=== PATIENT | female | born 1940 | race Caucasian/White ===

== ENCOUNTER 2017-04-23 13:40 | Inpatient (IN) | payer OTHER ==
[~2017-04-23] VITALS: Ht 162.6 cm; Wt 100.6 kg
[2017-04-23] VITALS (8 sets, daily range): BP systolic 102–128; BP diastolic 68–77; PULSE 66–97; TEMP 36.6–37.1; O2SAT 92–98; Ht 162.6 cm; Wt 100.6 kg
[~2017-04-23 13:40] MED LIST: RAPID SEQUENCE INDUCTION BAG ONE
[2017-04-23] MEDS ORDERED: ONDANSETRON INJ 2 MG/ML 2 ML VIAL IV ONE (13:45)
[2017-04-23] MEDS ORDERED: ONDANSETRON INJ 2 MG/ML 2 ML VIAL ONE (13:50)
[2017-04-23] MEDS ORDERED: NITROGLYCERIN/D5W 100 MCG/ML 500 ML IV STA (13:51)
[2017-04-23] MEDS ORDERED: FUROSEMIDE 40 MG/4 ML VIAL IV STA (13:51)
[2017-04-23] MEDS ORDERED: NITROGLYCERIN/D5W 100 MCG/ML BTL ONE (13:52)
[2017-04-23 14:15] LABS: BASO % 1.3 %; BASO ABS # 0.06 K/uL (0-0.2); COMPLETE YES; EOS % 0.6 %; HEMATOCRIT 48.9 % (37-47); IG% 0.2 %; LYMPH ABS # 1.36 K/uL (1.2-3.4); MEAN CELL VOLUME 102.7 fL (80-100); MEAN CORPUSCULAR HEMOGLOBIN 29.8 pg (25-34); MEAN PLATELET VOLUME 9.7 fL (7.4-10.4); MONO % 9.8 %; NEUT % 59.1 %; PLATELET COUNT 136 K/uL (130-400); RED BLOOD COUNT 4.76 M/uL (4.2-5.4); VEN BLD GAS O2 SATURATION 86.1 %; VEN BLOOD GAS BASE EXCESS 10.3 mEq/L; WHITE BLOOD COUNT 4.69 K/uL (4.8-10.8)
[2017-04-23 14:22] LABS: INR 1.2 (0.9-1.1); PARTIAL THROMBOPLASTIN RATIO 0.9; PROTHROMBIN TIME (PATIENT) 12.7 SECONDS (9.0-12.0)
--- NOTE | 2017-04-23 14:38 | DIAGNOSTIC IMAGING REPORT ---
CHEST ONE VIEW PORTABLE HISTORY: 76 years-old Female EVALUATE RESPIRATORY DISTRESS.DYSPNEA acute respiratory distress COMPARISON: None available TECHNIQUE: Portable semiupright AP view of the chest FINDINGS: The exam is very limited secondary to patient's side bent to the right and rotated to the left with hypoinflation. Bronchovascular crowding is noted with subsegmental bibasilar opacities suggesting atelectasis. There is atherosclerosis of the aorta. Cardiac silhouette is enlarged. There is no pneumothorax or large pleural effusion. Bones of the chest appear grossly intact. Surgical clips project over the right upper abdomen. IMPRESSION: 1. Limited study secondary to positioning and hypoinflation with bronchovascular crowding. 2. Cardiomegaly without overt pulmonary edema. 3. Subsegmental bibasilar opacities suggest atelectasis. The above report was generated using voice recognition software. It may contain grammatical, syntax or spelling errors. Electronically signed by: Vijay Rahman M.D. 04/23/2017 2:37 PM Dictated Date/Time: 04/23/2017 2:34 PM
[2017-04-23 14:40] LABS: ALT/SGPT 25 U/L (12-78); AST/SGOT 37 U/L (15-37); BLOOD UREA NITROGEN 19 mg/dl (7-18); CALCIUM 8.7 mg/dl (8.5-10.1); CARBON DIOXIDE 38 mmol/L (21-32); CHLORIDE 94 mmol/L (98-107); CREATININE 1.19 mg/dl (0.60-1.20); GLUCOSE 150 mg/dl (70-99); POTASSIUM 4.1 mmol/L (3.5-5.1); SODIUM 137 mmol/L (136-145)
[2017-04-23 14:43] LABS: URINE APPEARANCE CLEAR (CLEAR); URINE BILIRUBIN NEG (NEG); URINE COLOR YELLOW; URINE EPITHELIAL CELL AUTO >30 /lpf (0-5); URINE NITRITE NEG (NEG); URINE SPECIFIC GRAVITY 1.017 (1.000-1.030); UROBILINOGEN NEG (NEG)
[2017-04-23 14:45] LABS: ALB/GLOB RATIO 0.7 (0.9-2); ALKALINE PHOSPHATASE 107 U/L (45-117)
[2017-04-23 14:46] LABS: MANUAL MICROSCOPIC REQUIRED? NO; REVIEW REQ? YES
--- NOTE | 2017-04-23 15:15 | EMERGENCY ROOM VISIT NOTE ---
History Report prepared by Aletheaibgulshan: Jimenez Mora Under the Supervision of: Dr. Guevara Epstein M.D. First contact with patient: 13:30 Stated Complaint: UNRESPONSIVE History of Present Illness The patient is a 76 year old white female with a past medical history of COPD who presents to the ED by EMS with a cc of an improving altered mental status beginning shortly prior to arrival. Per EMS, patient was found unresponsive in the passenger seat of her car parked outside of an [employer] by her friend. Incontinent of urine and breathing "abnormally" at this time. Her blood oxygen saturations were found to be in the low 90's. Patient became response en route, but confused. Her BSG was found to be 175. She appeared to be in A-fib on the monitor. She was reported to appear diaphoretic with a bluish discoloration. The patient denies any pain. She notes that she is on supplemental oxygen at home. Patient's friend notes that the patient was not wearing her supplemental oxygen today at [employer]. Patient is on baby aspirin at home. Source of History: patient, EMS Onset: Shortly prior to arrival Quality: other (altered mental status) Timing: other (improving) Associated Symptoms: + diaphoresis, + SOB, No headache, No chest pain, No abdominal pain, No back pain Note: Positive: bluish discoloration, incontinence of bladder. Review of Systems See HPI for pertinent positives and negatives. A total of ten systems were reviewed and were otherwise negative. Past Medical & Surgical Medical Problems: (1) COPD (chronic obstructive pulmonary disease) (2) Respiratory failure with hypoxia and hypercapnia (3) Respiratory failure with hypoxia and hypercapnia Family History No pertinent family history stated. Social History Occupation Status: retired Current/Historical Medications Scheduled Aspirin (Aspirin EC Low Dose), 81 MG PO DAILY Azelastine Hcl (Astelin Nasal [place]), 2 SPRAYS NA BID Citalopram Hydrobromide (Citalopram Hydrobromide), 10 MG PO DAILY Levothyroxine Sodium (Levothyroxine Sodium), 112 MCG PO DAILY Potassium Ext Rel (Klor-Con), 20 MEQ PO DAILY Scheduled PRN Furosemide (Lasix), 20 MG PO QID PRN for PRN Allergies Coded Allergies: Egg (Unverified Allergy, Unknown, UNKNOWN, 04/23/17) Physical Exam Vital Signs Date Time Temp Pulse Resp B/P (MAP) Pulse Ox O2 Delivery O2 Flow Rate FiO2 04/23/17 16:05 82 18 104/67 92 BiPAP 45 04/23/17 15:45 82 18 95/60 91 BiPAP 45 04/23/17 15:25 86 18 105/66 89 BiPAP 45 04/23/17 15:20 82 18 101/71 92 BiPAP 45 04/23/17 15:15 87 18 105/67 97 BiPAP 45 04/23/17 15:05 93 18 102/69 94 BiPAP 45 04/23/17 15:00 85 18 90/63 94 BiPAP 04/23/17 14:51 86 18 101/70 91 BiPAP 45 04/23/17 14:44 107 18 123/88 95 04/23/17 14:36 72 112/70 91 BiPAP 35 04/23/17 14:35 93 18 94/81 04/23/17 14:23 63 18 144/77 91 BiPAP 04/23/17 14:01 90 BiPAP 5.0 35 04/23/17 13:54 78 94 40 04/23/17 13:49 36.3 107 22 174/113 91 Nasal Cannula 6.0 04/23/17 13:49 Nasal Cannula 04/23/17 13:44 124 Physical Exam GENERAL: Awake, alert, well-appearing, NAD HENT: Normocephalic, atraumatic. EYES: Normal conjunctiva. Sclera non-icteric. PERRL. NECK: Supple. No nuchal rigidity. FROM. RESPIRATORY: Decreased breath sounds. Mild tachypnea. Clear to auscultation. CARDIAC: RRR, no MRG ABDOMEN: Soft, NTND, BS+ MSK: No chest wall TTP. Chronic venous changes in bilateral lower extremity with pitting edema. NEURO: A0x3. GCS 14. Moves lower extremities. 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 SKIN: No rash or jaundice noted. Medical Decision & Procedures ER Provider Diagnostic Interpretation: X-ray: Per my interpretation, radiologist review. CHEST ONE VIEW PORTABLE FINDINGS: The exam is very limited secondary to patient's side bent to the right and rotated to the left with hypoinflation. Bronchovascular crowding is noted with subsegmental bibasilar opacities suggesting atelectasis. There is atherosclerosis of the aorta. Cardiac silhouette is enlarged. There is no pneumothorax or large pleural effusion. Bones of the chest appear grossly intact. Surgical clips project over the right upper abdomen. IMPRESSION: 1. Limited study secondary to positioning and hypoinflation with bronchovascular crowding. 2. Cardiomegaly without overt pulmonary edema. 3. Subsegmental bibasilar opacities suggest atelectasis. The above report was generated using voice recognition software. It may contain grammatical, syntax or spelling errors. Electronically signed by: Vijay Rahman M.D. 04/23/2017 2:37 PM Laboratory Results 04/23/17 13:59 Red Blood Count 4.76, Mean Corpuscular Volume 102.7, Mean Corpuscular Hemoglobin 29.8, Mean Corpuscular Hemoglobin Concent 29.0, Mean Platelet Volume 9.7, Neutrophils (%) (Auto) 59.1, Lymphocytes (%) (Auto) 29.0, Monocytes (%) ( Auto) 9.8, Eosinophils (%) (Auto) 0.6, Basophils (%) (Auto) 1.3, Neutrophils # ( Auto) 2.77, Lymphocytes # (Auto) 1.36, Monocytes # (Auto) 0.46, Eosinophils # ( Auto) 0.03, Basophils # (Auto) 0.06 04/23/17 13:59 Test 04/23/17 13:59 04/23/17 14:05 04/23/17 14:15 04/23/17 14:25 White Blood Count 4.69 K/uL (4.8-10.8) Red Blood Count 4.76 M/uL (4.2-5.4) Hemoglobin 14.2 g/dL (12.0-16.0) Hematocrit 48.9 % (37-47) Mean Corpuscular Volume 102.7 fL (80-100) Mean Corpuscular Hemoglobin 29.8 pg (25-34) Mean Corpuscular Hemoglobin Concent 29.0 g/dl (32-36) Platelet Count 136 K/uL (130-400) Mean Platelet Volume 9.7 fL (7.4-10.4) Neutrophils (%) (Auto) 59.1 % Lymphocytes (%) (Auto) 29.0 % Monocytes (%) (Auto) 9.8 % Eosinophils (%) (Auto) 0.6 % Basophils (%) (Auto) 1.3 % Neutrophils # (Auto) 2.77 K/uL (1.4-6.5) Lymphocytes # (Auto) 1.36 K/uL (1.2-3.4) Monocytes # (Auto) 0.46 K/uL (0.11-0.59) Eosinophils # (Auto) 0.03 K/uL (0-0.5) Basophils # (Auto) 0.06 K/uL (0-0.2) RDW Standard Deviation 58.9 fL (36.4-46.3) RDW Coefficient of Variation 15.7 % (11.5-14.5) Immature Granulocyte % (Auto) 0.2 % Immature Granulocyte # (Auto) 0.01 K/uL (0.00-0.02) Prothrombin Time 12.7 SECONDS (9.0-12.0) Prothromb Time International Ratio 1.2 (0.9-1.1) Activated Partial Thromboplast Time 24.1 SECONDS (21.0-31.0) Partial Thromboplastin Ratio 0.9 Venous Blood pH 7.30 (7.36-7.41) Venous Blood Partial Pressure CO2 85 mmHg (38.0-50.0) Venous Blood Partial Pressure O2 57 mmHg Venous Blood HCO3 41 mmol/L Venous Blood Oxygen Saturation 86.1 % Venous Blood Base Excess 10.3 mEq/L Anion Gap 5.0 mmol/L (3-11) Est Creatinine Clear Calc Drug Dose 47.2 ml/min Estimated GFR () 51.4 Estimated GFR (Non- 44.3 BUN/Creatinine Ratio 16.0 (10-20) Calcium Level 8.7 mg/dl (8.5-10.1) Total Bilirubin 1.0 mg/dl (0.2-1) Aspartate Amino Transf (AST/SGOT) 37 U/L (15-37) Alanine Aminotransferase (ALT/SGPT) 25 U/L (12-78) Alkaline Phosphatase 107 U/L (45-117) Troponin I < 0.015 ng/ml (0-0.045) Pro-B-Type Natriuretic Peptide 1800 pg/ml (0-1800) Total Protein 7.7 gm/dl (6.4-8.2) Albumin 3.3 gm/dl (3.4-5.0) Globulin 4.4 gm/dl (2.5-4.0) Albumin/Globulin Ratio 0.7 (0.9-2) Bedside Lactic Acid Venous 3.37 mmol/L (0.90-1.70) Urine Color YELLOW Urine Appearance CLEAR (CLEAR) Urine pH 5.0 (4.5-7.5) Urine Specific Lillie 1.017 (1.000-1.030) Urine Protein 2+ (NEG) Urine Glucose (UA) NEG (NEG) Urine Ketones NEG (NEG) Urine Occult Blood TRACE (NEG) Urine Nitrite NEG (NEG) Urine Bilirubin NEG (NEG) Urine Urobilinogen NEG (NEG) Urine Leukocyte Esterase TRACE (NEG) Urine WBC (Auto) 1-5 /hpf (0-5) Urine RBC (Auto) 0-4 /hpf (0-4) Urine Hyaline Casts (Auto) 5-10 /lpf (0-5) Urine Epithelial Cells (Auto) >30 /lpf (0-5) Urine Bacteria (Auto) NEG (NEG) Urine Renal Epithelial Cells /lpf (0-5) Urine Crystals AMORPHOUS SEDIMENT (NONE Urine Pathogenic Casts /lpf (0) Lactic Acid Level 3.0 mmol/L (0.4-2.0) Laboratory results reviewed by me Medications Administered Medications (Trade) Dose Ordered Sig/Adair Route Start Time Stop Time Status Last Admin Dose Admin Ondansetron HCl (Zofran Inj) 4 mg STK-MED ONCE .ROUTE 04/23/17 13:50 04/23/17 13:51 DC 04/23/17 13:50 4 MG Nitroglycerin/ Dextrose 500 ml @ 0 mls/hr Q0M STAT IV 04/23/17 13:51 04/23/17 13:54 DC 04/23/17 14:08 30 MLS/HR Furosemide (Lasix Inj) 40 mg NOW STAT IV 04/23/17 13:51 04/23/17 13:54 DC 04/23/17 14:09 40 MG ECG Indication: altered mental status Rate (beats per minute): 116 Rhythm: atrial fibrillation (with RVR) Findings: Q waves (Inferior), other (wide QRS. No other STS changes or TWI. ) ED Course 1339: The patient was evaluated in room A1. A complete history and physical exam was performed. 1352: Bedside ultrasound reveals a very dilated LV with dilated IVC. Scattered B -lines in the bilateral lung field. 1505: Upon reexamination, the patient was resting comfortably. I discussed the test results and treatment plan with her. The patient will be evaluated for further management. Medical Decision The patient is a 76 year old white female with a past medical history of COPD who presents to the ED by EMS with a cc of an improving altered mental status beginning shortly prior to arrival. Differential diagnosis: Etiologies such as metabolic, infection, hypoglycemia, electrolyte abnormalities , cardiac sources, intracerebral event, toxicologic, neurologic, as well as others were entertained. Patient was seen and evaluated the bedside. Patient was and at times to the GCS of 14 was moving all fours did not have any anisocoria. There was a concern that the patient was not breathing well. Patient does have some chronic venous stasis changes and a bedside ultrasound was completed which show a dilated LV plethoric IVC and some B lines the bilateral lung tello. Patient was fairly hypertensive at this time. Patient was placed on BiPAP, given Lasix and started on a nitro drip. Patient did have blood work that was completed along with a chest x-ray. Patient's blood work showed a negative troponin and a BNP of 1800. Patient did have improvement of her symptoms after medications and BiPAP was administered. Gathered some history from the friend at the bedside he states that she is on chronic oxygen but did not have it with and without today patient's VBG did show a pH 73 with some hypercarbia have her a lot of this is chronic as she has a respiratory alkalosis is compensatory for her respiratory acidosis. I did speak with the hospitalist and then did speak with the light technician. The light technician does not believe the patient needs to be in the unit. Patient was admitted. Medication Reconcilliation Current Medication List: was personally reviewed by me Blood Pressure Screening Patient's blood pressure: Elevated blood pressure Blood pressure disposition: Referred to PCP Consults Time Called: 1500 Consulting Physician: Judy Amin Returned Call: 1503 Discussed the patient's case. The patient will be evaluated for further treatment and disposition. Additional Consults: Time Called: 1506 Consulted Physician: Dr. Olguin -ICU Returned Call: [phone] Additional Comments: Discussed the patient's case. Dr. Olguin will evaluate the patient for possible stay in the ICU. Impression Primary Impression: CHF exacerbation Additional Impression: Acute respiratory failure with hypoxia Critical Care I have personally spent greater than 42 minutes of critical care time in the direct management of this patient. This includes bedside care, interpretation of diagnostic studies, and testing, discussion with consultants, patient, and family members, and other required patient management activities. This 42 minutes is in excess of all separately billable procedures. Scribe Attestation The scribe's documentation has been prepared under my direction and personally reviewed by me in its entirety. I confirm that the note above accurately reflects all work, treatment, procedures, and medical decision making performed by me. Departure Information Dispostion Being Evaluated By Hospitalist Problem Qualifiers Primary Impression: CHF exacerbation Congestive heart failure type: systolic Qualified Codes: I50.23 - Acute on chronic systolic (congestive) heart failure
[2017-04-23] MEDS ORDERED: CITA10TA4 PO (15:19)
[2017-04-23] MEDS ORDERED: ASTN (15:19)
[2017-04-23] MEDS ORDERED: LEVO112T4 PO (15:19)
[2017-04-23] MEDS ORDERED: POTA20TA16 PO (15:19)
[2017-04-23] MEDS ORDERED: FURO-85 PO (15:19)
[2017-04-23] MEDS ORDERED: ACETAMINOPHEN 325 MG TAB PO PRN (16:00)
[2017-04-23] MEDS ORDERED: ONDANSETRON INJ 2 MG/ML 2 ML VIAL IV PRN (16:00)
[2017-04-23 16:29] LABS: ARTERIAL BLD GAS O2 SATURATION 97.6 % (90-95); ARTERIAL BLOOD GAS BASE EXCESS 13.5 mEq/L (-9-1.8); ARTERIAL BLOOD GAS HCO3 44 mmol/L (19-24); ARTERIAL BLOOD GAS PO2 113 mm/Hg (80-95); ARTERIAL BLOOD GAS pH 7.31 (7.35-7.45)
[2017-04-23 16:30] LABS: ALLEN TEST POS (POS); O2 ADMINISTRATION 45%
[2017-04-23] MEDS ORDERED: ASPEC81 PO (16:43)
[2017-04-23] MEDS ORDERED: LEVALBUTEROL 1.25MG/3ML NEB INH PRN (17:00)
[2017-04-23] MEDS ORDERED: HEPARIN 25000 UNIT/ D5W 500 ML (PHARMACY PREPARED) IV PRN ×2 (18:30)
--- NOTE | 2017-04-23 19:42 | History and Physical ---
History & Physical Date & Time of Service: Apr 23, 2017 ~ 15:45 Chief Complaint: Unresponsive Primary Care Physician: Dr. Lane History of Present Illness 76 year old female who presents to the ED after an unresponsive episode today. Some history is obtained from patient's friend who is at the bedside. She reports that she picked up the patient this morning to go for breakfast at [facility]. After breakfast and once patient got into the car the friend reports that the patient went unresponsive, was turning blue, and minimally breathing. EMS was called. Upon their arrival, patient was found to have elevated end tidal C02. BiPap was applied. Upon arrival to the ED, patient slowly started to improve. She was initially hypertensive and bedside echo was concerning for CHF so patient was started on nitro drip and given Lasix 40mg IV. EKG shows atrial fibrillation with controlled rate. At the time of my exam, patient is much more alert. She reports she has been feeling well recently. Patient is to wear oxygen 2L however did not wear it when she left the house today. She denies chest pain. No lightheadedness, dizziness, diaphoresis, or syncopal events. She denies abdominal pain, nausea, vomiting, or diarrhea. No fever or chills. She denies urinary symptoms. Patient's legs are noted to be red which she reports is chronic and that they are unchanged from baseline. In the ED, patient is improving with BiPap. EKG shows atrial fibrillation which seems to be new. Lactic acid is 3.0. No obvious signs of infection. Past Medical/Surgical History Medical Problems: (1) COPD (chronic obstructive pulmonary disease) Status: Chronic (2) Depression Status: Chronic (3) Hypothyroidism Status: Chronic (4) Lymphedema Status: Chronic Family History non contributory due to patient's advanced age Social History Smoking Status: Never Smoker Alcohol Use: none Housing status: lives alone Allergies Coded Allergies: Egg (Unverified Allergy, Unknown, UNKNOWN, 04/23/17) Home Medications Scheduled Aspirin (Aspirin EC Low Dose), 81 MG PO DAILY Azelastine Hcl (Astelin Nasal [place]), 2 SPRAYS NA BID Citalopram Hydrobromide (Citalopram Hydrobromide), 10 MG PO DAILY Levothyroxine Sodium (Levothyroxine Sodium), 112 MCG PO DAILY Potassium Ext Rel (Klor-Con), 20 MEQ PO DAILY Scheduled PRN Furosemide (Lasix), 20 MG PO QID PRN for PRN Review of Systems ROS per HPI, all other systems reviewed and negative Physical Exam Vital Signs Date Time Temp Pulse Resp B/P (MAP) Pulse Ox O2 Delivery O2 Flow Rate FiO2 04/23/17 17:33 36.9 97 22 128/77 93 BiPAP 35 04/23/17 17:00 78 98 35 04/23/17 16:05 82 18 104/67 92 BiPAP 45 04/23/17 15:45 82 18 95/60 91 BiPAP 45 04/23/17 15:25 86 18 105/66 89 BiPAP 45 04/23/17 15:20 82 18 101/71 92 BiPAP 45 04/23/17 15:15 87 18 105/67 97 BiPAP 45 04/23/17 15:05 93 18 102/69 94 BiPAP 45 04/23/17 15:00 85 18 90/63 94 BiPAP 04/23/17 14:51 86 18 101/70 91 BiPAP 45 04/23/17 14:44 107 18 123/88 95 04/23/17 14:36 72 112/70 91 BiPAP 35 04/23/17 14:35 93 18 94/81 04/23/17 14:23 63 18 144/77 91 BiPAP 04/23/17 14:01 90 BiPAP 5.0 35 04/23/17 13:54 78 94 40 04/23/17 13:49 36.3 107 22 174/113 91 Nasal Cannula 6.0 04/23/17 13:49 Nasal Cannula 04/23/17 13:44 124 General Appearance: no apparent distress, + obese Head: normocephalic, atraumatic Eyes: normal inspection, PERRL, EOMI, sclerae normal ENT: hearing grossly normal, + pertinent finding (dry mucous membranes) Neck: supple, no JVD, trachea midline Respiratory/Chest: no respiratory distress, + decreased breath sounds, + pertinent finding (resting on BiPap) Cardiovascular: + irregularly irregular (rate controlled), + pertinent finding (+2-3 edema BLLE) Abdomen/GI: normal bowel sounds, non tender, soft, no organomegaly Extremities/Musculoskelatal: normal inspection, no calf tenderness, normal capillary refill Neurologic/Psych: no motor/sensory deficits, alert, normal mood/affect, oriented x 3 Skin: warm/dry, + pertinent finding (BLLE erythematous with dry flaking skin, no open area os drainage noted) Diagnostics Laboratory Results Results Past 24 Hours Test 04/23/17 13:59 04/23/17 14:05 04/23/17 14:15 04/23/17 14:25 Range/Units White Blood Count 4.69 4.8-10.8 K/uL Red Blood Count 4.76 4.2-5.4 M/uL Hemoglobin 14.2 12.0-16.0 g/dL Hematocrit 48.9 37-47 % Mean Corpuscular Volume 102.7 80-100 fL Mean Corpuscular Hemoglobin 29.8 25-34 pg Mean Corpuscular Hemoglobin Concent 29.0 32-36 g/dl Platelet Count 136 130-400 K/uL Mean Platelet Volume 9.7 7.4-10.4 fL Neutrophils (%) (Auto) 59.1 % Lymphocytes (%) (Auto) 29.0 % Monocytes (%) (Auto) 9.8 % Eosinophils (%) (Auto) 0.6 % Basophils (%) (Auto) 1.3 % Neutrophils # (Auto) 2.77 1.4-6.5 K/uL Lymphocytes # (Auto) 1.36 1.2-3.4 K/uL Monocytes # (Auto) 0.46 0.11-0.59 K/uL Eosinophils # (Auto) 0.03 0-0.5 K/uL Basophils # (Auto) 0.06 0-0.2 K/uL RDW Standard Deviation 58.9 36.4-46.3 fL RDW Coefficient of Variation 15.7 11.5-14.5 % Immature Granulocyte % (Auto) 0.2 % Immature Granulocyte # (Auto) 0.01 0.00-0.02 K/uL Prothrombin Time 12.7 9.0-12.0 SECONDS Prothromb Time International Ratio 1.2 0.9-1.1 Activated Partial Thromboplast Time 24.1 21.0-31.0 SECONDS Partial Thromboplastin Ratio 0.9 Venous Blood pH 7.30 7.36-7.41 Venous Blood Partial Pressure CO2 85 38.0-50.0 mmHg Venous Blood Partial Pressure O2 57 mmHg Venous Blood HCO3 41 mmol/L Venous Blood Oxygen Saturation 86.1 % Venous Blood Base Excess 10.3 mEq/L Sodium Level 137 136-145 mmol/L Potassium Level 4.1 3.5-5.1 mmol/L Chloride Level 94 98-107 mmol/L Carbon Dioxide Level 38 21-32 mmol/L Anion Gap 5.0 3-11 mmol/L Blood Urea Nitrogen 19 7-18 mg/dl Creatinine 1.19 0.60-1.20 mg/dl Est Creatinine Clear Calc Drug Dose 47.2 ml/min Estimated GFR () 51.4 Estimated GFR (Non- 44.3 BUN/Creatinine Ratio 16.0 10-20 Random Glucose 150 70-99 mg/dl Calcium Level 8.7 8.5-10.1 mg/dl Total Bilirubin 1.0 0.2-1 mg/dl Aspartate Amino Transf (AST/SGOT) 37 15-37 U/L Alanine Aminotransferase (ALT/SGPT) 25 12-78 U/L Alkaline Phosphatase 107 45-117 U/L Troponin I < 0.015 0-0.045 ng/ml Pro-B-Type Natriuretic Peptide 1800 0-1800 pg/ml Total Protein 7.7 6.4-8.2 gm/dl Albumin 3.3 3.4-5.0 gm/dl Globulin 4.4 2.5-4.0 gm/dl Albumin/Globulin Ratio 0.7 0.9-2 Bedside Lactic Acid Venous 3.37 0.90-1.70 mmol/L Urine Color YELLOW Urine Appearance CLEAR CLEAR Urine pH 5.0 4.5-7.5 Urine Specific Leon 1.017 1.000-1.030 Urine Protein 2+ NEG Urine Glucose (UA) NEG NEG Urine Ketones NEG NEG Urine Occult Blood TRACE NEG Urine Nitrite NEG NEG Urine Bilirubin NEG NEG Urine Urobilinogen NEG NEG Urine Leukocyte Esterase TRACE NEG Urine WBC (Auto) 1-5 0-5 /hpf Urine RBC (Auto) 0-4 0-4 /hpf Urine Hyaline Casts (Auto) 5-10 0-5 /lpf Urine Epithelial Cells (Auto) >30 0-5 /lpf Urine Bacteria (Auto) NEG NEG Urine Renal Epithelial Cells 0-5 /lpf Urine Crystals AMORPHOUS SEDIMENT NONE PRSENT Urine Pathogenic Casts 0 /lpf Lactic Acid Level 3.0 0.4-2.0 mmol/L Test 04/23/17 16:15 Range/Units Arterial Blood pH 7.31 7.35-7.45 Arterial Blood Partial Pressure CO2 88 35-46 mmHg Arterial Blood Partial Pressure O2 113 80-95 mm/Hg Arterial Blood HCO3 44 19-24 mmol/L Arterial Blood Oxygen Saturation 97.6 90-95 % Arterial Blood Base Excess 13.5 -9-1.8 mEq/L Arterial Blood Gas Delivery 45% Abhishek Test POS POS Diagnostic Radiology CXR IMPRESSION: 1. Limited study secondary to positioning and hypoinflation with bronchovascular crowding. 2. Cardiomegaly without overt pulmonary edema. 3. Subsegmental bibasilar opacities suggest atelectasis. Impression Assessment and Plan ACUTE ON CHRONIC HYPOXIC, HYPERCAPNIC RESPIRATORY FAILURE - admit to tele - patient presenting with an episode of unresponsiveness after going out without her oxygen (typically wears 2L all the time); in the ED, patient is improving with BiPap - ABG shows respiratory acidosis - will continue BiPap and recheck ABG - suspect symptoms today are from hypoxia from not wearing oxygen - CXR without infiltrate - also could consider PE - for now, will check BLLE dopplers; currently on heparin drip anyway for new onset atrial fibrillation - per outpatient records, patient does carry a history of COPD however is not on any inhalers; will start PRN nebs and hold on steroids since there is no wheezing at this time; may need pulmonary evaluation - obesity hypoventilation may be contributing as well NEW ONSET ATRIAL FIBRILLATION - patient denies history of and no record of atrial fibrillation on records obtained from PCP - currently rate controlled - will start IV Heparin and low dose metoprolol 12.5mg BID for now - serial cardiac enzymes, resting echo - cardio consult, input appreciated LACTIC ACIDEMIA - likely from hypoxia - no signs of infection or sepsis - will recheck lactic acid HYPOTHYROIDISM - continue levothyroxine DEPRESSION - continue citalopram DVT PROPHYLAXIS - on heparin gtt CODE STATUS - Patient is a DNR as per my discussion with her. DISPO - In my clinical judgment this beneficiary meets acute admission criteria, established by CMS, that includes being hospitalized through two midnights. ADDENDUM: This is a 76 year old female with a PMH of CHF, COPD on chronic O2, hypothyroidism presents after being unresponsive. States she went to [employer] and did not use her oxygen while inside - she is on chronic 2L of O2 at home. When she got back to the car, her friend states she passed out and almost turned blue. Put back on oxygen and EMS brought her to the ED. Was confused initially, but as she was given oxygen (placed on bipap) she felt better. Found to be in A. Fib in the ED - new onset? Plan: continue bipap, recheck ABG in AM, check bilateral LE dopplers lactic acid trending down started on low dose b-yovani and anticoagulation (IV heparin for now) DNR Advanced Directives Existing Living Will: No Existing Power of Commercial Drafter: Yes VTE Prophylaxis VTE Risk Assessment Done? Y/N: Yes Risk Level: Moderate
[2017-04-23] MEDS ORDERED: ALBUT/IPRATROP 3MG/0.5MG NEB 3 ML VIAL INH SCH (20:00)
[2017-04-23 20:38] LABS: ARTERIAL BLD GAS O2 SATURATION 95.9 % (90-95); ARTERIAL BLOOD GAS BASE EXCESS 13.1 mEq/L (-9-1.8); ARTERIAL BLOOD GAS HCO3 44 mmol/L (19-24); ARTERIAL BLOOD GAS PO2 91 mm/Hg (80-95)
[2017-04-23 20:40] LABS: ALLEN TEST POS (POS); O2 ADMINISTRATION 35%
[2017-04-23] MEDS ORDERED: ENOXAPARIN 40 MG/0.4 ML SYR SC SCH (21:00)
[2017-04-23] MEDS: METOPROLOL TARTRATE 25 MG TAB PO SCH (21:51)
[2017-04-24] VITALS (10 sets, daily range): BP systolic 95–113; BP diastolic 58–81; PULSE 20–90; TEMP 36.3–36.9; O2SAT 91–100
[2017-04-24 01:31] LABS: PARTIAL THROMBOPLASTIN RATIO 2.4
[2017-04-24 06:07] LABS: HEMATOCRIT 46.4 % (37-47); MEAN CELL VOLUME 103.3 fL (80-100); MEAN CORPUSCULAR HEMOGLOBIN 29.8 pg (25-34); MEAN CORPUSCULAR HGB CONC 28.9 g/dl (32-36); MEAN PLATELET VOLUME 9.9 fL (7.4-10.4); PLATELET COUNT 129 K/uL (130-400); RED BLOOD COUNT 4.49 M/uL (4.2-5.4); WHITE BLOOD COUNT 4.04 K/uL (4.8-10.8)
[2017-04-24 06:09] LABS: ARTERIAL BLD GAS O2 SATURATION 94.2 % (90-95); ARTERIAL BLOOD GAS BASE EXCESS 13.7 mEq/L (-9-1.8); ARTERIAL BLOOD GAS HCO3 44 mmol/L (19-24); ARTERIAL BLOOD GAS PO2 77 mm/Hg (80-95); ARTERIAL BLOOD GAS pH 7.33 (7.35-7.45)
[2017-04-24] MEDS: LEVOTHYROXINE 112 MCG TAB PO SCH (06:10)
[2017-04-24 06:17] LABS: ALLEN TEST POSITIVE (POS); O2 ADMINISTRATION 35%
[2017-04-24 06:22] LABS: PARTIAL THROMBOPLASTIN RATIO 3.6
--- NOTE | 2017-04-24 06:37 | DIAGNOSTIC IMAGING REPORT ---
VENOUS DOPPLER LWR EXT BILA HISTORY: Pain pain, edema COMPARISON STUDY: None. FINDINGS: There is normal compressibility, flow, and augmentation within the bilateral lower extremity deep venous systems. IMPRESSION: No DVT within the right or left lower extremity. The above report was generated using voice recognition software. It may contain grammatical, syntax or spelling errors. Electronically signed by: Long Alva M.D. 04/24/2017 6:36 AM Dictated Date/Time: 04/24/2017 6:36 AM
[2017-04-24 06:43] LABS: BUN/CREATININE RATIO 21.1 (10-20); CALCIUM 8.6 mg/dl (8.5-10.1); CREATININE 0.93 mg/dl (0.60-1.20); POTASSIUM 4.2 mmol/L (3.5-5.1)
[2017-04-24] MEDS: ASPIRIN 81 MG ECTAB PO SCH (08:56)
[2017-04-24] MEDS: CITALOPRAM 20 MG TAB PO SCH (08:56)
[2017-04-24] MEDS: METOPROLOL TARTRATE 25 MG TAB PO SCH (08:56)
--- NOTE | 2017-04-24 08:56 | ECHOCARDIOGRAM REPORT ---
*NOTICE TO RECEIVING CONSTITUTION PARTY AGENCY This information is strictly Confidential and protected under [place] law. [place] law prohibits you from making any further disclosure of this information unless further disclosure is expressly permitted by the written consent of the person to whom it pertains or is authorized by law. A general authorization for the release of medical or other information is not sufficient for this purpose. Hospital accepts no responsibility if the information is made available to any other person, INCLUDING THE PATIENT. Interpretation Summary * Name: NASEEM FABIAN Study Date: 04/24/2017 07:34 AM BP: 104/67 mmHg * Patient Location: [facility]\S\N284\S\1 HR: 61 * : 1940 (M/d/yyyy) Gender: Female Height: 64 in * Age: 76 yrs Ethnicity: CA Weight: 228 lb * Ordering Physician: Judy Freeman * Referring Physician: Self, Referred * Performed By: Julienne Gamboa RDCS * * Reason For Study: Atrial Fibrillation * BSA: 2.1 m2 * -- Conclusions -- * Normal LV chamber size with mild concentric LVH. * Normal LV systolic function, EF 55-60%. * No segmental left ventricular wall motion abnormalities are noted. * Aortic valve sclerosis moderate, without significant aortic valvular stenosis. * Moderate aortic valve sclerosis without stenosis. Mild aortic regurgitation. * Mild mitral regurgitation. * Severe tricuspid regurgitation. * Moderate left atrial enlargment. * Severe right atrial enlargement. * Pulmonary hypertension is present with a PASP of 43 mmHg assuming a RA pressure of 15 mmHg. Procedure Details * A complete two-dimensional transthoracic echocardiogram was performed (2D, M-mode, Doppler and color flow Doppler). Left Ventricle * The left ventricle is normal in size. * There is mild concentric left ventricular hypertrophy. * Ejection Fraction = 55-60%. * Left ventricular systolic function is normal. * No segmental left ventricular wall motion abnormalities are noted. * The left ventricular wall motion is normal. Right Ventricle * The right ventricular cavity size is normal (basal dimension <4.2 cm in right ventricular apical 4-chamber view). * The right ventricular systolic function is normal as assessed by tricuspid annular plane systolic excursion (TAPSE) (normal >1.5 cm). Atria * The left atrium is moderately dilated. * The right atrium is severely dilated. * No ASD detected; PFO is not assessed. Mitral Valve * The mitral valve anatomy is normal. * There is no mitral valve stenosis. * There is mild mitral regurgitation. Tricuspid Valve * The tricuspid valve anatomy is normal. * There is no tricuspid stenosis. * There is severe tricuspid regurgitation. Aortic Valve * The aortic valve is tricuspid. The leaflet thickness if normal. There is no aortic stenosis, and no significant insufficiency. * Aortic valve sclerosis moderate, without significant aortic valvular stenosis. * No hemodynamically significant valvular aortic stenosis. * Mild aortic regurgitation. Pulmonic Valve * The pulmonary valve is not well seen, but the Doppler examination is normal without significant regurgitation or stenosis. Great Vessels * The aortic root is normal size. Pericardium/Pleural * There is no pericardial effusion. MMode 2D Measurements and Calculations IVSd 1.1 cm IVSs 1.2 cm LVIDd 4.8 cm LVIDs 3.2 cm LVPWd 0.96 cm LVPWs 1.3 cm IVS/LVPW 1.1 FS 32.9 % EDV(Teich) 105.4 ml ESV(Teich) 40.8 ml EF(Teich) 61.3 % EDV(cubed) 107.8 ml ESV(cubed) 32.6 ml EF(cubed) 69.8 % % IVS thick 9.8 % % LVPW thick 32.9 % LV mass(C)d 172.3 grams LV mass(C)dI 83.3 grams/m\S\2 LV mass(C)s 123.8 grams LV mass(C)sI 59.8 grams/m\S\2 SV(Teich) 64.7 ml SI(Teich) 31.3 ml/m\S\2 SV(cubed) 75.3 ml SI(cubed) 36.4 ml/m\S\2 Ao root diam 2.6 cm Ao root area 5.4 cm\S\2 ACS 1.5 cm LA dimension 5.0 cm LA/Ao 1.9 LVAd ap4 20.4 cm\S\2 LVLd ap4 6.7 cm EDV(MOD-sp4) 56.6 ml EDV(sp4-el) 53.0 ml LVAs ap4 10.1 cm\S\2 LVLs ap4 5.5 cm ESV(MOD-sp4) 18.6 ml ESV(sp4-el) 15.9 ml EF(MOD-sp4) 67.1 % EF(sp4-el) 69.9 % LVAd ap2 16.5 cm\S\2 LVLd ap2 6.6 cm EDV(MOD-sp2) 35.2 ml EDV(sp2-el) 34.7 ml LVAs ap2 9.9 cm\S\2 LVLs ap2 5.5 cm ESV(MOD-sp2) 15.4 ml ESV(sp2-el) 15.3 ml EF(MOD-sp2) 56.3 % EF(sp2-el) 56.0 % LVLd %diff -0.35 % EDV(MOD-bp) 44.5 ml LVLs %diff 0.33 % ESV(MOD-bp) 16.2 ml EF(MOD-bp) 63.7 % SV(MOD-sp4) 38.0 ml SI(MOD-sp4) 18.4 ml/m\S\2 SV(MOD-sp2) 19.8 ml SI(MOD-sp2) 9.6 ml/m\S\2 SV(MOD-bp) 28.3 ml SI(MOD-bp) 13.7 ml/m\S\2 SV(sp4-el) 37.0 ml SI(sp4-el) 17.9 ml/m\S\2 SV(sp2-el) 19.5 ml SI(sp2-el) 9.4 ml/m\S\2 Doppler Measurements and Calculations Ao V2 max 147.7 cm/sec Ao max PG 8.7 mmHg Ao max PG (full) 6.2 mmHg AI max mae 343.3 cm/sec AI max PG 47.2 mmHg AI dec slope 220.6 cm/sec\S\2 AI P1/2t 455.8 msec LV V1 max PG 2.5 mmHg LV V1 max 79.1 cm/sec PA V2 max 101.4 cm/sec PA max PG 4.1 mmHg PI max mae 170.4 cm/sec PI max PG 11.6 mmHg PI dec slope 137.3 cm/sec\S\2 PI P1/2t 363.5 msec TR max mae 260.3 cm/sec
[2017-04-24] MEDS ORDERED: LIDOCAINE HCL 1% 20 ML VIAL ONE (11:32)
[2017-04-24] MEDS ORDERED: BUPIVACAINE 0.5 % 5 MG/1 ML MPF 30ML VIAL ONE (11:33)
[2017-04-24] MEDS ORDERED: BACITRACIN 50000 UNIT VIAL ONE (11:33)
--- NOTE | 2017-04-24 11:33 | History & Physical Bridge Note ---
H&P Re-Evaluation Bridge Note: I have examined the patient, reviewed the History & Physical and in the interval since the performance of the History & Physical I have noted the following changes of clinical significance: Pt with TBS and SSS and syncope for dual chamber ppm urgently
--- NOTE | 2017-04-24 11:34 | Procedure Note ---
Pre-Mod Sedation Assessment General Date of Moderate Sedation: Apr 24, 2017. Vital Signs: Vital Signs Past 12 Hours Date Time Temp Pulse Resp B/P (MAP) Pulse Ox O2 Delivery O2 Flow Rate FiO2 04/24/17 10:02 36.6 61 18 100/62 96 BiPAP 5.0 35 04/24/17 08:10 BiPAP 04/24/17 08:05 36.6 61 18 100/62 (75) 96 04/24/17 07:24 66 98 35 04/24/17 04:31 36.3 90 18 113/81 (92) 91 BiPAP 04/24/17 04:00 BiPAP 04/24/17 00:00 BiPAP 04/23/17 23:56 36.6 71 18 102/68 (79) 92 Nasal Cannula 2.0 04/23/17 23:50 66 98 35 Review Cardiovascular: + bradycardia Abdomen: soft Lungs: lungs clear Airway Class: II Pre-Sedation Airway Assessment Oral Cavity: Dentures Short Thick Neck: Yes Hx of Sleep Apnea: No Smoking Status: Never Smoker Mallampati Classification: Class II ASA Classification: Class II Procedure Planning Contraindications-for Mod Sed: None Yes Notes The planned sedation has been discussed with the patient and consent obtained. I have identified the patient, determined the appropriateness of sedation and have assessed the patient immediately prior to the procedure. All medicine(s) and interventions are by my order.
[2017-04-24] MEDS ORDERED: FENTANYL CITRATE INJ 50 MCG/1 ML 2 ML VIAL ONE (11:55)
[2017-04-24] MEDS ORDERED: MIDAZOLAM HCL 5 MG/ML 1 ML VIAL ONE (11:55)
[2017-04-24] MEDS ORDERED: CEFAZOLIN SOD 1 GM VIAL ONE (11:57)
--- NOTE | 2017-04-24 12:00 | CARDIOLOGY CONSULTATION ---
DATE OF CONSULTATION: 04/24/2017 CONSULTATION REQUESTED BY: ROSEMARY Reynoso. REASON FOR CONSULTATION: Syncope and new onset atrial fibrillation. HISTORY OF PRESENT ILLNESS: Mrs. Rojas is a very pleasant 76-year-old woman who is unknown to the [facility]. She presented to [facility] Emergency Department on 04/23/2017 via EMS after a syncopal event. The patient states that she was eating at the local [employer] with her friend and when she went to the restaurant, she did not take her oxygen with her. She got through the meal okay, but then when she left the restaurant and was getting back into the car, she suddenly lost consciousness. Her friend reports that she turned blue and EMS was called. At that time, she was found to be hypoxic. Her blood sugar was okay in the 170s and she was found to be in atrial fibrillation. Upon arrival to the Emergency Department, she was placed on BiPAP and she started to come to. She was also incidentally found to be in AFib, which she states is a new finding for her. However, her rates were not significantly elevated. She was admitted to telemetry unit overnight without issue and remained on BiPAP. Then, at approximately 08:45, she had a significant approximately 5-second pause on telemetry monitoring. She did not convert with this and had subsequent pauses of the same length and remained in atrial fibrillation, now in the 30s. She was asymptomatic at rest with this, but states that she did get lightheaded when she tried to sit up. I called and spoke with the patient's son, Myles, who also volunteered that she did have a fall recently approximately a week ago and is wondering if she did not pass out again at that time. She has been started on heparin for the newly discovered atrial fibrillation and she was ordered metoprolol tartrate; however, she refused the medication. PAST SURGICAL HISTORY: Denies. MEDICAL ILLNESSES: 1. COPD. 2. Chronic respiratory failure, on home O2. 3. Depression. 4. Hypothyroidism. 5. Lymphedema. FAMILY HISTORY: Noncontributory. SOCIAL HISTORY: The patient denies any cigarette use; however, she has been around secondhand smoker in her entire life. Denies any alcohol or recreational drug use. She is recently . She lives by herself. She has 1 son. 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 ALLERGIES: EGG. MEDICATIONS AN OUTPATIENT: 1. Aspirin 81 mg daily. 2. Levothyroxine daily. 3. Potassium chloride daily. 4. Citalopram daily. 5. Azelastine spray b.i.d. REVIEW OF SYSTEMS: As per HPI, all other review of systems reviewed and negative at this time. PHYSICAL EXAMINATION: VITALS: Temperature 36.6, pulse 38, respiratory rate 14, blood pressure 100/62, and saturating 96% on 5 liters of oxygen via BiPAP. GENERAL: Awake, alert, and oriented x3 in no acute distress. HEENT: Normocephalic and atraumatic. Pupils equal, round, and reactive to light and accommodation. Extraocular muscles intact. Anicteric sclerae. Moist mucous membranes. Edentulous. NECK: No JVD and no bruit. CARDIOVASCULAR: Irregularly irregular and slow with a 3/6 mid to late systolic ejection murmur, greatest at the right sternal border, second intercostal space with radiation to the bilateral carotids. No rubs. PULMONARY: Scant rhonchi diffusely, but no rales or wheezing. ABDOMEN: Bowel sounds x4, soft. No rebound, guarding, or tenderness. No organomegaly. EXTREMITIES: +1 bilateral lower extremity pitting edema. No clubbing or cyanosis. +2 pedal pulses bilaterally. SKIN: Warm and dry. TEST RESULTS: Review of telemetry monitoring shows a 5-second pause at 08:46 a.m. and further telemetry monitoring shows atrial fibrillation in 30s. A 2D echocardiogram was read as normal LV chamber size with mild concentric LVH, normal LV systolic function, EF 55%-60%, no segmental left ventricle wall motion abnormalities were noted, moderate aortic valve sclerosis without stenosis, mild aortic regurgitation, mild mitral regurgitation, severe tricuspid regurgitation, moderate left atrial enlargement, severe right atrial enlargement. Pulmonary hypertension is present with a pulmonary systolic pressure of 43 mmHg, assuming right atrial pressure of 50 mmHg. LABORATORY STUDIES OF SIGNIFICANCE: White count of 4, hemoglobin 13.4, and platelet count of 129. Sodium 139, potassium 4.2, BUN 20, and creatinine of 0.9. Blood gas from 04/24/2017 shows 7.33/84/77/44 on 35%. IMPRESSION: 1. Syncope, likely secondary to symptomatic bradycardia. 2. Tachybrady syndrome with newly discovered atrial fibrillation. 3. Chronic hypoxemia. RECOMMENDATIONS: It was my pleasure to see Mrs. Rojas in consultation today. The patient was counseled given the finding that she does appear to have tachybrady syndrome along with symptomatic bradycardia is the likely cause of her syncope. So, given the fact that she is not on any AV becca agents and there is no other organic cause apparent that at this point, I believe she has a primary conduction system disease and that the most prudent course of action would be for a permanent pacemaker placement. I have discussed the pros and cons of this with the patient as well as her son, Myles, and they are both in agreement. So, at this point, her heparin will be discontinued. She has been n.p.o. since admission and she will remain that way and Dr. Purvis will evaluate for the patient for dual chamber permanent pacemaker today given the fact that this is her first episode of atrial fibrillation. Otherwise, all AV becca blocking agents will be held until the pacemaker has been implanted. Thank you very much for allowing me to participate in the care of your patient.
--- NOTE | 2017-04-24 13:25 | Procedure Note ---
Post-Mod Sedation Assessment General Date of Moderate Sedation Apr 24, 2017. Vital Signs: Vital Signs Past 12 Hours Date Time Temp Pulse Resp B/P (MAP) Pulse Ox O2 Delivery O2 Flow Rate FiO2 04/24/17 13:15 60 16 111/70 (84) 99 BiPAP 36 04/24/17 11:50 36.6 40 22 95/58 (70) 98 Room Air 04/24/17 10:02 36.6 61 18 100/62 96 BiPAP 5.0 35 04/24/17 08:10 BiPAP 04/24/17 08:05 36.6 61 18 100/62 (75) 96 04/24/17 07:24 66 98 35 04/24/17 04:31 36.3 90 18 113/81 (92) 91 BiPAP 04/24/17 04:00 BiPAP Review - Discharge Criteria Vital Signs Stable: Yes Alert/Oriented/Conversant: Yes Returned to Baseline Mental St: Yes Nausea Absent/Minimal: Yes Pain/Discomfort/Absent/Minimal: Yes Normal/Baseline Respirations: Yes Active Bleeding?: No Pt Received D/C Instructions: N/A Prescriptions Given: None Specific Proced. D/C Criteria Distal Pulses Present (Cardiac: N/A Groin site assessed-Card Cath: N/A Voided Prior To Discharge: N/A Discharged Patients Adult Escort/Transportation: N/A
[2017-04-24] MEDS ORDERED: ACETAMINOPHEN 325 MG TAB PO PRN (13:30)
[2017-04-24 14:30] LABS: PARTIAL THROMBOPLASTIN RATIO 1.2
--- NOTE | 2017-04-24 15:52 | OPERATIVE REPORT ---
DATE OF OPERATION: 04/24/2017 PREOPERATIVE DIAGNOSIS: Tachybrady syndrome and syncope. POSTOPERATIVE DIAGNOSIS: Same. PROCEDURE: Dual chamber rate responsive permanent pacemaker under fluoroscopic guidance along with peripheral venogram. SURGEON: Dr. Maria D Purvis. MISSION SUPPORT SPECIALIST: None. ANESTHESIA: Monitored conscious sedation administered under my supervision by Christin Cornejo. Total of 2 mg of Versed and 25 mcg of fentanyl, sedation start time was actually 1234. The procedure start time was 1210 and sedation end time was 1315. BLOOD LOSS: Less than 30 mL. COMPLICATIONS: None. CONDITION: Stable. URINE OUTPUT: Not applicable. SPECIMENS: None. FINDINGS: See below. DRAINS: None. IV FLUIDS: 600 mL. INDICATIONS: This 76-year-old female who was admitted to the [facility] after a syncopal episode thought she also had some COPD exacerbation as she was then placed on BIPAP however monitor on telemetry she had evidence of tachybrady syndrome where she was in new onset atrial fibrillation, then went sinus umm in the 30s and was barely and only got 12.5 to 25 of metoprolol and therefore she was recommended an urgent pacemaker. Her other past medical history of COPD on home oxygen, depression, hypothyroidism and lymphedema. CONSENT: Consent was obtained prior to the patient coming into the electrophysiology lab. The patient was informed of risks, benefits, alternatives to the procedure. Risks include but not limited to sudden cardiac , cardiac arrhythmias, cerebrovascular accident, myocardial infarction, injury to the blood vessels, chamber of the heart, bleeding and infection as well as injury to the lung. The patient understood these risks and agreed to the procedure as planned. DESCRIPTION OF THE PROCEDURE: The patient was on BiPAP and she could not really see the consent because she could not wear her glasses. Her niece who is a nurse here at [facility] signed on her behalf. DESCRIPTION OF PROCEDURE: The patient was brought into the electrophysiology lab in a fasting state. She was connected to continuous cardiac specialist. A timeout was performed to ensure patient's identity and procedure correctly. The patient received prophylactic antibiotics prior to incision. She was prepped and draped over the left infraclavicular space in normal surgical standard fashion. Moderate conscious sedation was given throughout the procedure for patient's comfort level. Taswell precautions were maintained throughout the procedure. Of note, before any of the procedure, the patient's blood pressure was on the lower side, so she did receive some IV fluids. A 20 mL of 1% lidocaine, bupivacaine mixture were given in the left deltopectoral groove. Incision was made in left deltopectoral groove. Blunt dissection was performed down to identify the cephalic vein. The cephalic vein was identified but it was on the smaller end so I opted to do a peripheral venogram using 10 mL of IV contrast diluted in 10 mL of saline followed by 20 mL flush to identify the axillary vein. Venous access was obtained through the axillary venous stick and guidewire was inserted without any resistance. The 8 Pakistani sheath was inserted over the guidewire without any resistance. The dilator was removed and a second guidewire was inserted through the 8-Pakistani sheath to allow for retained venous access. The 8-Pakistani sheath was removed, flushed, dilator reinserted over it and then it was reinserted over one of the guidewires without any resistance. The guidewire and dilator were removed and the pacing lead was then advanced initially into the right ventricle; however, I thought that it was not going to be long enough for slack so we positioned it into the right atrial appendage under fluoroscopic guidance using the preformed J-wire. There was adequate pacing and sensing thresholds. The patient did go into Afib during the procedure with placing of the atrial pacing lead but eventually she flipped back into sinus bradycardia and we were able to test and have adequate sensing and thresholds and no diaphragmatic stimulation at high outflow pacing. The 8-Pakistani sheath was peeled away and lead was fixated to the pectoralis muscle using 0 silk suture. A second 8-Pakistani sheath was inserted over the retained guidewire without any resistance. The guidewire and dilator were removed. The right ventricular pacing lead was then advanced into right ventricle and positioned in right infraclavicular apex under fluoroscopic guidance. There was adequate pacing and sensing thresholds and no diaphragmatic stimulation with high output pacing. The 8-Pakistani sheath was peeled away and lead was fixated to the pectoralis muscle using 0 silk suture. Since there was some backbleeding at the venous puncture site, a pursestring using 2-[address] needle was placed around the venous puncture site. An additional 10 mL of 1% lidocaine, bupivacaine mixture were given over the pectoralis fascia and then using blunt dissection within the pectoral fascia over the pectoralis muscle a pacemaker pocket was created. The pocket was flushed with copious amounts of bacitracin saline wash and inspected for hemostasis. Pulse generator was then attached to the leads making sure that the leads were lying flat, making sure that the pins were in appropriate position, passed the set screws and the set screws were tightened. Pulse generator was then placed in the pocket, making sure that the leads were lying flat beneath the device. A stay stitch using 0 silk suture was used to secure the device to the pectoralis muscle. Since the patient was recently on a heparin drip and is going back on Coumadin Lisa stat was placed in the pocket. The incision was then closed in a 3-layer fashion using a 2-0 Vicryl interrupted suture followed by 3-0 Vicryl interrupted suture followed by a 4-0 Monocryl running stitch and Dermabond was applied. EQUIPMENT: 1. Pulse generator was a [employer] Advisa DR MRI SureScan [id number], serial number [id number]. 2. Right atrial lead is a Medtronic 5076-58 cm, serial number [id number]. 3. Right ventricular lead Medtronic 5076-65 cm, serial number [id number]. INTRAOPERATIVE TESTIN. Right atrial lead: P-wave 0.4 millivolts, impedance 551 ohms, threshold 0.5 volts at 0.8 milliamps. 2. Right ventricular lead: R-wave 2.4 millivolts but on paper were 7 millivolts, impedance 957 ohms, threshold 0.4 volts at 0.3 milliamps. FINAL PARAMETERS THROUGH THE DEVICE: 1. Right atrial lead: P-wave 0.1 millivolts but on unipolar it is 0.8 millivolts, impedance 475 ohms, threshold 0.5 volts at 0.4 milliseconds. 2. Right ventricular lead: R-wave 2.4 millivolts, impedance 665 ohms, threshold 0.5 volts at 0.4 milliseconds. FINAL PARAMETERS: MVP-R 60/130. Right atrial amplitude 3.5 volts, pulse width 0.4 milliseconds, sensitivity 0.15 millivolts. Right ventricular amplitude 3.5 volts, pulse width 0.4 milliseconds, sensitivity 1.2 millivolts. IMPRESSION: Successful implantation of a dual chamber rate responsive permanent pacemaker under fluoroscopic guidance secondary to syncope and tachybrady syndrome. PLAN: Monitor patient overnight, 12-lead ECG, chest x-ray. Absolutely no systemic heparin or Lovenox. Start Coumadin and start Toprol 25 mg daily. She is not allowed to lift the left elbow over left shoulder for 1 month. She cannot lift more than 10 pounds with the left arm for 2 weeks. She can shower tomorrow, let water run over the incision, do no scrub it. She should follow up in our [facility] office with device and wound check in 7-10 days. I attest to the content of the Intraoperative Record and any orders documented therein. Any exception s are noted below.
[2017-04-24] MEDS ORDERED: WARFARIN SOD 3 MG TAB PO SCH (16:00)
--- NOTE | 2017-04-24 19:02 | Progress Note ---
Internal Med Progress Note Date of Service: Apr 24, 2017. Provider Documentation: SUBJECTIVE: resting comfortably s/p pace maker today has some pain at procedure site afebrile no nausea denies sob OBJECTIVE: Vital Signs-as noted below Exam: General-alert and oriented. Not in distress ENT-normal hearing Neck-no neck masses Lungs- cta b/l no wheezing present no crackles Heart-s1 and s2 heard regular rate and rhythm no murmurs s/p pacemaker placement -dressing intact Abdomen-soft bowel sounds present no tenderness present no distension Extremities- no erythema Neuro-alert and oriented moves extremities Lab data as noted below. ASSESSMENT & PLAN: ACUTE ON CHRONIC HYPOXIC, HYPERCAPNIC RESPIRATORY FAILURE presented with unresponsive episode ABG shows acidosis initially was placed on bipap chronically on oxygen 2lts [place]? currently stable had pace maker placement today for tachybrady syndrome possible unresponsive episode from bradycardia NEW ONSET ATRIAL FIBRILLATION Tachybrady syndrome s/p pace maker placement today was initially on heparin currently started on Coumadin LACTIC ACIDEMIA likely from hypoxia normal on recheck HYPOTHYROIDISM on levothyroxine DEPRESSION on citalopram DVT PROPHYLAXIS hep sub q CODE STATUS Patient is a DNR as per h and p DISPOSITION monitor in tele pt/ot to be determined Vital Signs: Date Time Temp Pulse Resp B/P (MAP) Pulse Ox O2 Delivery O2 Flow Rate FiO2 04/24/17 16:19 Nasal Cannula 3.0 04/24/17 15:10 36.5 83 18 106/68 (81) 100 BiPAP 80 04/24/17 14:00 36.5 60 20 101/66 (78) BiPAP 35 04/24/17 13:35 36.4 60 18 112/67 (82) 94 BiPAP 35 04/24/17 13:30 60 16 115/67 (83) 99 BiPAP 36 04/24/17 13:15 60 16 111/70 (84) 99 BiPAP 36 04/24/17 12:00 BiPAP 04/24/17 11:50 36.6 40 22 95/58 (70) 98 Room Air 04/24/17 10:02 36.6 61 18 100/62 96 BiPAP 5.0 35 04/24/17 08:10 BiPAP 04/24/17 08:05 36.6 61 18 100/62 (75) 96 04/24/17 07:24 66 98 35 04/24/17 04:31 36.3 90 18 113/81 (92) 91 BiPAP 04/24/17 04:00 BiPAP 04/24/17 00:00 BiPAP 04/23/17 23:56 36.6 71 18 102/68 (79) 92 Nasal Cannula 2.0 04/23/17 23:50 66 98 35 04/23/17 20:06 97 BiPAP 04/23/17 19:56 80 98 35 04/23/17 19:49 37.1 77 18 109/73 (85) 94 BiPAP Lab Results: Results Past 24 Hours Test 04/23/17 20:03 04/23/17 20:04 04/24/17 00:51 04/24/17 05:52 Range/Units Creatine Kinase MB 3.6 4.2 0.5-3.6 ng/ml Creatine Kinase MB Ratio 0-3.0 Troponin I 0.050 0.040 0-0.045 ng/ml Arterial Blood pH 7.30 7.33 7.35-7.45 Arterial Blood Partial Pressure CO2 90 84 35-46 mmHg Arterial Blood Partial Pressure O2 91 77 80-95 mm/Hg Arterial Blood HCO3 44 44 19-24 mmol/L Arterial Blood Oxygen Saturation 95.9 94.2 90-95 % Arterial Blood Base Excess 13.1 13.7 -9-1.8 mEq/L Arterial Blood Gas Delivery 35% 35% Abhishek Test POS POSITIVE POS Lactic Acid Level 0.8 0.4-2.0 mmol/L Activated Partial Thromboplast Time 63.2 93.1 21.0-31.0 SECONDS Partial Thromboplastin Ratio 2.4 3.6 White Blood Count 4.04 4.8-10.8 K/uL Red Blood Count 4.49 4.2-5.4 M/uL Hemoglobin 13.4 12.0-16.0 g/dL Hematocrit 46.4 37-47 % Mean Corpuscular Volume 103.3 80-100 fL Mean Corpuscular Hemoglobin 29.8 25-34 pg Mean Corpuscular Hemoglobin Concent 28.9 32-36 g/dl RDW Standard Deviation 59.2 36.4-46.3 fL RDW Coefficient of Variation 15.7 11.5-14.5 % Platelet Count 129 130-400 K/uL Mean Platelet Volume 9.9 7.4-10.4 fL Sodium Level 139 136-145 mmol/L Potassium Level 4.2 3.5-5.1 mmol/L Chloride Level 95 98-107 mmol/L Carbon Dioxide Level 40 21-32 mmol/L Anion Gap 4.0 3-11 mmol/L Blood Urea Nitrogen 20 7-18 mg/dl Creatinine 0.93 0.60-1.20 mg/dl Est Creatinine Clear Calc Drug Dose 57.9 ml/min Estimated GFR () 69.2 Estimated GFR (Non- 59.7 BUN/Creatinine Ratio 21.1 10-20 Random Glucose 84 70-99 mg/dl Calcium Level 8.6 8.5-10.1 mg/dl Test 04/24/17 14:10 Range/Units Activated Partial Thromboplast Time 30.0 21.0-31.0 SECONDS Partial Thromboplastin Ratio 1.2
[2017-04-24] MEDS ORDERED: METOPROLOL TARTRATE 25 MG TAB PO SCH (21:00)
[2017-04-24] MEDS ORDERED: NURSING VERBAL MED ORDER ONE (22:30)
[2017-04-24] MEDS ORDERED: LORAZEPAM 2 MG/ML 1 ML VIAL IV STA ×2 (22:57→22:58)
[2017-04-25] VITALS (15 sets, daily range): BP systolic 105–132; BP diastolic 70–84; PULSE 48–99; TEMP 36.5–37.5; O2SAT 91–100
[2017-04-25] MEDS: LEVOTHYROXINE 112 MCG TAB PO SCH (06:11)
[2017-04-25 06:13] LABS: HEMATOCRIT 40.7 % (37-47); MEAN CELL VOLUME 103.8 fL (80-100); MEAN CORPUSCULAR HEMOGLOBIN 30.1 pg (25-34); MEAN PLATELET VOLUME 9.5 fL (7.4-10.4); PLATELET COUNT 114 K/uL (130-400); RED BLOOD COUNT 3.92 M/uL (4.2-5.4); WHITE BLOOD COUNT 5.58 K/uL (4.8-10.8)
[2017-04-25 06:36] LABS: PARTIAL THROMBOPLASTIN RATIO 1.1
--- NOTE | 2017-04-25 07:16 | DIAGNOSTIC IMAGING REPORT ---
CHEST 2 VIEWS ROUTINE CLINICAL HISTORY: EXACT TIME ORDERED Evaluate for pneumothorax and lead placement COMPARISON STUDY: 04/23/2017 FINDINGS: Placement of a permanent bipolar cardiac pacemaker. Leads are in good position. No evidence pneumothorax. Mild bibasilar atelectasis. IMPRESSION: Permanent bipolar cardiac pacemaker placement with leads in good position. No evidence for pneumothorax. Mild bibasilar platelike atelectasis. The above report was generated using voice recognition software. It may contain grammatical, syntax or spelling errors. Electronically signed by: Long Alva M.D. 04/25/2017 7:14 AM Dictated Date/Time: 04/25/2017 7:13 AM
[2017-04-25] MEDS ORDERED: METOPROLOL SUCC 25MG EXT REL TAB PO ONE (09:00)
[2017-04-25] MEDS ORDERED: METOPROLOL SUCC 25MG EXT REL TAB PO SCH (09:00)
--- NOTE | 2017-04-25 09:15 | Cardiology Follow-Up ---
Subjective Subjective Date of Service: Apr 25, 2017. Pt evaluation today including: conversation w/ patient, physical exam, chart review, lab review, review of studies, review of inpatient medication list Additional Details: Pt seen and examined, states that she's feeling much better since admission. Breathing has improved, now off bipap. Some soreness at pocket site. Denies cp, palpitations, lightheadedness or dizziness. Tele: intermixed A/V pacing and atrial fibrillation with increased rates. Problem List Social History Problems: (1) Acute respiratory failure with hypoxia Status: Acute (2) CHF exacerbation Status: Acute (3) COPD (chronic obstructive pulmonary disease) Status: Chronic Review of Systems Respiratory: + shortness of breath, + dyspnea on exertion, No see HPI, No cough , No sputum, No wheezing, No dyspnea at rest, No hemoptysis, No problem reported Cardiac: No see HPI, No chest pain, No orthopnea, No PND, No edema, No claudication, No palpitations, No problem reported Objective Vital Signs Last Vital Signs Documentation Date Time Temp Pulse Resp B/P (MAP) Pulse Ox O2 Delivery O2 Flow Rate FiO2 04/25/17 08:45 36.5 99 16 111/73 (86) 98 Nasal Cannula 04/25/17 05:13 40 04/25/17 03:43 5.0 Physical Exam: General Appearance: WD/WN, no apparent distress Eyes: bilateral eyes normal inspection, bilateral eyes PERRL, bilateral eyes EOMI ENT: normal ENT inspection, hearing grossly normal, pharynx normal Neck: supple, no adenopathy, thyroid normal, no JVD, no carotid bruits, trachea midline Respiratory/Chest: + pertinent finding (pocket site erythmatous but appropriate , no hemorrhage) Cardiovascular: no JVD, + tachycardia, + systolic murmur, + irregularly irregular Abdomen: normal bowel sounds, non tender, soft, no organomegaly, no pulsatile mass Extremities: normal inspection, no pedal edema, no calf tenderness Neurologic/Psychiatric: complex care nurse II-XII nml as tested, no motor/sensory deficits, alert, normal mood/affect, oriented x 3 Skin: normal color, warm/dry, no rash Lymphatic: no adenopathy Assessment and Plan 1. syncope likely secondary to significant bradycardia s/p dual chamber permanent pacemaker tolerated well 80% total pacing overnight 2. SSS can now treat tachycardia will uptitrate metoprolol can add cardizem or dig if bp does not tolerate higher BB doses 3. new onset atrial fibrillation increased rates will increase metoprolol succinate to 50mg daily, can further uptitrate or add cardizem or dig for further rate control coumadin started, goal INR 2-3 cont to monitor on tele
[2017-04-25] MEDS: CITALOPRAM 20 MG TAB PO SCH (09:46)
[2017-04-25] MEDS: ASPIRIN 81 MG ECTAB PO SCH (09:47)
[2017-04-25] MEDS: METOPROLOL SUCC 50MG EXT REL TAB PO SCH (09:47)
[2017-04-25 10:31] LABS: BUN/CREATININE RATIO 18.7 (10-20); CALCIUM 8.5 mg/dl (8.5-10.1); CREATININE 1.33 mg/dl (0.60-1.20); POTASSIUM 4.2 mmol/L (3.5-5.1)
[2017-04-25] MEDS ORDERED: POLYETHYLENE (MIRALAX) 17 GM PACK PO PRN (11:15)
[2017-04-25] MEDS ORDERED: OPTIRAY 320 IV PRN (15:00)
[2017-04-25 15:50] LABS: BASO % 0.5 %; BASO ABS # 0.03 K/uL (0-0.2); COMPLETE YES; EOS % 1.4 %; HEMATOCRIT 43.8 % (37-47); IG% 0.2 %; LYMPH % 16.3 %; LYMPH ABS # 0.91 K/uL (1.2-3.4); MEAN CELL VOLUME 104.5 fL (80-100); MEAN CORPUSCULAR HEMOGLOBIN 30.1 pg (25-34); MEAN CORPUSCULAR HGB CONC 28.8 g/dl (32-36); MEAN PLATELET VOLUME 9.6 fL (7.4-10.4); MONO % 16.2 %; NEUT % 65.4 %; PLATELET COUNT 111 K/uL (130-400); RED BLOOD COUNT 4.19 M/uL (4.2-5.4); WHITE BLOOD COUNT 5.57 K/uL (4.8-10.8)
[2017-04-25] MEDS ORDERED: LEVALBUTEROL/IPRATROPIUM NEB INH SCH (16:00)
[2017-04-25] MEDS ORDERED: LEVALBUTEROL/IPRATROPIUM NEB INH PRN (16:00)
[2017-04-25] MEDS ORDERED: WARFARIN SOD 3 MG TAB PO SCH (16:00)
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
[2017-04-25 16:11] LABS: ALB/GLOB RATIO 0.7 (0.9-2); BUN/CREATININE RATIO 20.5 (10-20); CALCIUM 8.3 mg/dl (8.5-10.1); CREATININE 1.26 mg/dl (0.60-1.20); MAGNESIUM 2.5 mg/dl (1.8-2.4); POTASSIUM 4.7 mmol/L (3.5-5.1)
[2017-04-25] MEDS ORDERED: IPRATROPIUM BROMIDE NEB SOLN 0.02% 2.5 ML VIAL INH PRN (16:15)
[2017-04-25] MEDS ORDERED: LEVALBUTEROL 1.25MG/0.5ML NEB INH PRN (16:15)
[2017-04-25 16:44] LABS: ARTERIAL BLD GAS O2 SATURATION 98.5 % (90-95); ARTERIAL BLOOD GAS BASE EXCESS 12.2 mEq/L (-9-1.8); ARTERIAL BLOOD GAS HCO3 42 mmol/L (19-24); ARTERIAL BLOOD GAS PO2 137 mm/Hg (80-95); ARTERIAL BLOOD GAS pH 7.31 (7.35-7.45)
[2017-04-25 16:46] LABS: ALLEN TEST POS (POS); O2 ADMINISTRATION 40%
[2017-04-25] MEDS: WARFARIN SOD 5 MG TAB PO SCH (16:47)
[2017-04-25] MEDS: METHYLPREDNISOLONE IV 40 MG in SYRINGE 0 ML IV SCH ×2 (16:48→20:13)
--- NOTE | 2017-04-25 18:01 | Progress Note ---
Internal Med Progress Note Date of Service: Apr 25, 2017. Provider Documentation: SUBJECTIVE: s/p pace maker yesterday last night got confused and agitated and received Ativan was doing ok in the morning has some pain at procedure site no sob no nausea later in day somewhat lethargic and abg showed co2 retention and started back non bipap OBJECTIVE: Vital Signs-as noted below Exam: General-alert and oriented. Not in distress ENT-normal hearing Neck-no neck masses Lungs- cta b/l no wheezing present no crackles Heart-s1 and s2 heard regular rate and rhythm no murmurs s/p pacemaker placement -site clean Abdomen-soft bowel sounds present no tenderness present no distension Extremities- no erythema b/l lower extremity edema present Neuro-alert and oriented moves extremities Lab data as noted below. ASSESSMENT & PLAN: ACUTE ON CHRONIC HYPOXIC, HYPERCAPNIC RESPIRATORY FAILURE presented with unresponsive episode ABG shows acidosis initially was placed on bipap chronically on oxygen 2lts [place]? copd ex had pace maker placement yesterday for tachybrady syndrome today again somewhat lethargic and abg shows co2 retention started back on bipap, iv steroids and nebs Ct chest no PE but extensive atelectasis avoid Ativan pulmonary consulted. NEW ONSET ATRIAL FIBRILLATION Unresponsive episode mostly from bradycardia Tachybrady syndrome s/p pace maker placement today was initially on heparin currently started on Coumadin ARF mostly from above will f/u labs. LACTIC ACIDEMIA likely from hypoxia normal on recheck HYPOTHYROIDISM on levothyroxine DEPRESSION on citalopram DVT PROPHYLAXIS hep sub q CODE STATUS Patient is a DNR as per h and p DISPOSITION monitor in tele pt/ot to be determined Vital Signs: Date Time Temp Pulse Resp B/P (MAP) Pulse Ox O2 Delivery O2 Flow Rate FiO2 04/25/17 16:15 80 100 40 04/25/17 16:10 BiPAP 2.0 04/25/17 16:05 36.9 85 12 112/74 (87) 97 04/25/17 14:22 81 98 40 04/25/17 14:15 76 16 132/84 (100) 96 BiPAP 2.0 04/25/17 12:00 Nasal Cannula 2.0 04/25/17 11:44 36.6 70 16 105/70 (82) 99 Nasal Cannula 04/25/17 08:45 36.5 99 16 111/73 (86) 98 Nasal Cannula 04/25/17 08:00 Nasal Cannula 2.0 04/25/17 05:13 70 97 40 04/25/17 04:00 BiPAP 40 04/25/17 03:43 37.1 90 16 115/72 (86) 91 CPAP 5.0 40 90 04/25/17 02:44 71 95 40 04/25/17 00:08 37.5 98 18 112/72 (85) 93 CPAP 5.0 40 98 04/25/17 00:00 BiPAP 40 04/24/17 21:47 67 93 40 04/24/17 20:00 BiPAP 04/24/17 19:36 36.9 20 20 101/62 (75) 97 Nasal Cannula 3.0 60 Lab Results: Results Past 24 Hours Test 04/25/17 00:23 04/25/17 05:32 04/25/17 15:36 04/25/17 16:33 Range/Units Bedside Glucose 106 70-90 mg/dl White Blood Count 5.58 5.57 4.8-10.8 K/uL Red Blood Count 3.92 4.19 4.2-5.4 M/uL Hemoglobin 11.8 12.6 12.0-16.0 g/dL Hematocrit 40.7 43.8 37-47 % Mean Corpuscular Volume 103.8 104.5 80-100 fL Mean Corpuscular Hemoglobin 30.1 30.1 25-34 pg Mean Corpuscular Hemoglobin Concent 29.0 28.8 32-36 g/dl RDW Standard Deviation 59.7 59.7 36.4-46.3 fL RDW Coefficient of Variation 15.9 15.6 11.5-14.5 % Platelet Count 114 111 130-400 K/uL Mean Platelet Volume 9.5 9.6 7.4-10.4 fL Activated Partial Thromboplast Time 28.0 21.0-31.0 SECONDS Partial Thromboplastin Ratio 1.1 Sodium Level 141 138 136-145 mmol/L Potassium Level 4.2 4.7 3.5-5.1 mmol/L Chloride Level 96 94 98-107 mmol/L Carbon Dioxide Level 43 42 21-32 mmol/L Anion Gap 3.0 2.0 3-11 mmol/L Blood Urea Nitrogen 25 26 7-18 mg/dl Creatinine 1.33 1.26 0.60-1.20 mg/dl Est Creatinine Clear Calc Drug Dose 41.0 43.2 ml/min Estimated GFR () 44.9 47.9 Estimated GFR (Non- 38.7 41.4 BUN/Creatinine Ratio 18.7 20.5 10-20 Random Glucose 86 98 70-99 mg/dl Calcium Level 8.5 8.3 8.5-10.1 mg/dl Neutrophils (%) (Auto) 65.4 % Lymphocytes (%) (Auto) 16.3 % Monocytes (%) (Auto) 16.2 % Eosinophils (%) (Auto) 1.4 % Basophils (%) (Auto) 0.5 % Neutrophils # (Auto) 3.64 1.4-6.5 K/uL Lymphocytes # (Auto) 0.91 1.2-3.4 K/uL Monocytes # (Auto) 0.90 0.11-0.59 K/uL Eosinophils # (Auto) 0.08 0-0.5 K/uL Basophils # (Auto) 0.03 0-0.2 K/uL Immature Granulocyte % (Auto) 0.2 % Immature Granulocyte # (Auto) 0.01 0.00-0.02 K/uL Magnesium Level 2.5 1.8-2.4 mg/dl Total Bilirubin 0.6 0.2-1 mg/dl Aspartate Amino Transf (AST/SGOT) 27 15-37 U/L Alanine Aminotransferase (ALT/SGPT) 15 12-78 U/L Alkaline Phosphatase 90 45-117 U/L Troponin I 0.071 0-0.045 ng/ml Total Protein 6.3 6.4-8.2 gm/dl Albumin 2.7 3.4-5.0 gm/dl Globulin 3.6 2.5-4.0 gm/dl Albumin/Globulin Ratio 0.7 0.9-2 Arterial Blood pH 7.31 7.35-7.45 Arterial Blood Partial Pressure CO2 86 35-46 mmHg Arterial Blood Partial Pressure O2 137 80-95 mm/Hg Arterial Blood HCO3 42 19-24 mmol/L Arterial Blood Oxygen Saturation 98.5 90-95 % Arterial Blood Base Excess 12.2 -9-1.8 mEq/L Arterial Blood Gas Delivery 40% Abhishek Test POS POS
[2017-04-25] MEDS: IPRATROPIUM BROMIDE NEB SOLN 0.02% 2.5 ML VIAL INH SCH (19:17)
[2017-04-25] MEDS: LEVALBUTEROL 0.63MG/3 ML NEB INH SCH (19:17)
--- NOTE | 2017-04-25 20:45 | DIAGNOSTIC IMAGING REPORT ---
HEAD WITHOUT CONTRAST (CT) CLINICAL HISTORY: 76 years-old Female presenting with lethargy. recent fall and on anticoagulation. TECHNIQUE: Multidetector CT imaging of the head was performed without the use of intravenous contrast. IV contrast: None. A dose lowering technique was used consistent with the principles of ALARA (as low as reasonably achievable). COMPARISON: None. CT DOSE (mGy.cm): The estimated cumulative dose is 614.27 mGy.cm. FINDINGS: Healthcare Analyst topogram: Unremarkable. Ventricles and sulci normal in size. Brain parenchyma normal in appearance with preserved paiz-white differentiation. No mass effect or midline shift. No hemorrhage or acute territorial infarct. No extra-axial fluid collection. Paranasal sinuses and mastoid air cells clear. Calvarium intact. IMPRESSION: 1. No acute intracranial pathology. Electronically signed by: Myles Tucker M.D. 04/25/2017 8:44 PM Dictated Date/Time: 04/25/2017 8:41 PM
[2017-04-25] MEDS ORDERED: LEVALBUTEROL 1.25MG/0.5ML NEB INH SCH (21:00)
[2017-04-25] MEDS ORDERED: IPRATROPIUM BROMIDE NEB SOLN 0.02% 2.5 ML VIAL INH SCH (21:00)
[2017-04-26] VITALS (10 sets, daily range): BP systolic 97–134; BP diastolic 65–81; PULSE 60–98; TEMP 36.3–36.8; O2SAT 94–99
[2017-04-26] MEDS: IPRATROPIUM BROMIDE NEB SOLN 0.02% 2.5 ML VIAL INH SCH ×4 (01:41→21:00)
[2017-04-26] MEDS: LEVALBUTEROL 0.63MG/3 ML NEB INH SCH ×4 (01:42→21:00)
[2017-04-26] MEDS: LEVOTHYROXINE 112 MCG TAB PO SCH (03:43)
[2017-04-26 07:48] LABS: COMPLETE YES; HEMATOCRIT 43.6 % (37-47); IG% 0.2 %; LYMPH % 11.6 %; LYMPH ABS # 0.51 K/uL (1.2-3.4); MEAN CELL VOLUME 102.8 fL (80-100); MEAN CORPUSCULAR HEMOGLOBIN 30.4 pg (25-34); MEAN CORPUSCULAR HGB CONC 29.6 g/dl (32-36); MEAN PLATELET VOLUME 9.8 fL (7.4-10.4); MONO % 3.9 %; NEUT % 84.3 %; PLATELET COUNT 105 K/uL (130-400); RED BLOOD COUNT 4.24 M/uL (4.2-5.4)
[2017-04-26 07:55] LABS: PARTIAL THROMBOPLASTIN RATIO 1.1
[2017-04-26 08:11] LABS: BUN/CREATININE RATIO 23.6 (10-20); CALCIUM 8.6 mg/dl (8.5-10.1); CREATININE 1.11 mg/dl (0.60-1.20); POTASSIUM 4.6 mmol/L (3.5-5.1)
[2017-04-26 08:25] LABS: INR 1.4 (0.9-1.1); PROTHROMBIN TIME (PATIENT) 14.7 SECONDS (9.0-12.0)
--- NOTE | 2017-04-26 08:38 | Pulmonary Consultation ---
History General Date of Service: Apr 26, 2017. Stated Complaint: Respiratory Failure With Hypoxia And Hypercapnia HPI The patient is a 76 year old female who presents to [facility] with complaints of Respiratory Failure With Hypoxia And Hypercapnia. The patient's primary care provider is No Doctor, Assigned. Ms. Rojas is a 76 year old female with who carries the diagnosis of COPD, chronic hypercapnic respiratory failure on 2L/m LTOT, morbid obesity, hypothyroidism who presented on 04/23/2017 by EMS after witnessed episode of syncope at [facility], length of time unknown. She was noted to be incontinent of urine and breathing abnormally and cyanotic in color. No seizure like activity was noted. When EMS arrived her pulse oximetry was in the low 90s. Glucose level was 175. She was not wearing her supplemental oxygen. Rhythm on their monitor showed atrial fibrillation. En route to hospital, patient was awake, but confused. In ER, initial labs were Na 137, K 4.1, Cl 94, CO2 38, BUN 19, Cr 1.19, and Ca 8.7. Venous lactate 3.37.,proBNP 1800, Albumin 3.3, TP 7.7. Liver enzymes within normal limits.WBC 4.46, Hgb 14, Plt Count 136. Initial EKG showed 116 bpm atrial fibrillation with RVR. BIPAP was applied. ABG 7.31/88/113/44/97.6% on 45% FIO2, BIPAP 10/5, RR14 bpm. CXR showed hypoinflation with bronchovascular crowding. Cardiomegaly without overt pulmonary edema. Subsegmental bibasilar opacities suggest atelectasis. She was admitted to telemetry for acute on chronic hypoxic hypercapnic respiratory failure and new onset atrial fibrillation. CT chest showed no pulmonary embolism, increased pulmonary diameter, suggestive of pulmonary hypertension and trace bilateral pleural effusions. Bilateral LE dopplers showed no DVT. On the morning of 04/24/2017 telemetry monitoring showed a 5-second pause quickly followed by atrial fibrillation. TTE showed Normal LV systolic function , EF 55-60%. Aortic valve sclerosis moderate, without significant aortic valvular stenosis. Severe tricuspid regurgitation. Moderate left atrial enlargement. Severe right atrial enlargement. Pulmonary hypertension is present with a PASP of 43 mmHg assuming a RA pressure of 15 mmHg. She underwent dual chamber pacemaker placement on later that day. Since admission significant labs are has follows. CO2 has been persitently elevated 38--> 40--> 43--> 42. Creatinine 1.19-->0.93-->1.33-->1.26 Troponins trend <0.015--> 0.050-->0.040--> 0.071. ABG 7.30/90//91/44/95.9% on 30% FIO2, BIPAP 12/6, RR14 bpm. ABG 7.33/84/77/44/94.2.% on 35% FIO2, BIPAP 12/6, RR14 bpm. ABG 7.31/86/137/42/98.5% on 30% FIO2, BIPAP 12/6, RR14 bpm. Her cumulative balance of -323 ml. Pulmonary consulted for hypercapnic acute on chronic hypercapnic respiratory failure. Today, she states is feeling better. She is still a little short of breath. She denies any chest pain. She states that her exercise tolerance is a few feet in the house. She uses walker for assistance. She admits to recent weight gain. She has orthopnea, PND and chronic lower extremity edema. She sleeps in a recliner chair due to dyspnea. Historian: patient, other (EMR) Review of Systems Constitutional: reports: as stated in HPI Eyes: reports: as stated in HPI ENT: reports: as stated in HPI Cardiovascular: reports: as stated in HPI Respiratory: reports: as stated in HPI Gastrointestinal: reports: as stated in HPI Genitourinary - Female: reports: as stated in HPI Musculoskeletal: reports: as stated in HPI Integumentary: reports: as stated in HPI Neurologic: reports: as stated in HPI Psychiatric: reports: as stated in HPI Endocrine: as stated in HPI Hematologic / Lymphatic: as stated in HPI Allergic / Immunologic: as stated in HPI All Other Symptoms All Other Systems: Reviewed and Negative Past Medical History Past Medical History: 1. ? COPD. 2. Chronic respiratory failure, on home O2. 3. Depression. 4. Hypothyroidism. 5. Lymphedema. 6. Three kidneys Past Surgical History: Cholecystectomy Family History Father has of lung cancer. Mother and siblings have diabetes. Social History She is a lifetime nonsmoker, but has lifelong history of secondhand smoke exposures. She denies any alcohol or illicit drug use. 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 She lives alone an recently . Hx Tobacco Use In Past Year?: No Smoking Status: Never Smoker Housing status: lives alone Allergies Coded Allergies: Egg (Unverified Allergy, Unknown, UNKNOWN, 04/23/17) Current Medications Reported Home Medications Medications Dose Route/Sig Max Daily Dose Days Date Category Aspirin EC Low Dose (Aspirin) 81 Mg Ectab 81 Mg PO DAILY 04/23/17 Reported Astelin Nasal Dennis (Azelastine Hcl) 200 Sprays/30 Ml Dennis 2 Sprays NA BID 04/23/17 Reported Klor-Con (Potassium Chloride) 20 Meq Tabcr 20 Meq PO DAILY 04/23/17 Reported Levothyroxine Sodium 112 Mcg Tab 112 Mcg PO DAILY 04/23/17 Reported Lasix (Furosemide) 20 Mg Tab 20 Mg PO QID PRN 04/23/17 Reported Citalopram Hydrobromide 10 Mg Tab 10 Mg PO DAILY 04/23/17 Reported Physical Physical Exam Vital Signs: Date Time Temp Pulse Resp B/P (MAP) Pulse Ox O2 Delivery O2 Flow Rate FiO2 04/26/17 04:00 CPAP 30 04/26/17 04:00 36.3 71 134/81 (98) 96 CPAP 30 04/26/17 01:42 86 20 95 BiPAP/CPAP 30 04/26/17 00:00 99 CPAP 2.0 30 04/25/17 22:55 36.5 81 16 123/75 (91) 99 CPAP 04/25/17 20:00 98 BiPAP 30 04/25/17 19:46 36.5 48 16 108/70 (83) 93 BiPAP 04/25/17 19:19 80 95 30 04/25/17 19:18 82 20 95 BiPAP/CPAP 30 04/25/17 16:15 80 100 40 04/25/17 16:10 BiPAP 2.0 04/25/17 16:05 36.9 85 12 112/74 (87) 97 04/25/17 14:22 81 98 40 04/25/17 14:15 76 16 132/84 (100) 96 BiPAP 2.0 04/25/17 12:00 Nasal Cannula 2.0 04/25/17 11:44 36.6 70 16 105/70 (82) 99 Nasal Cannula 04/25/17 08:45 36.5 99 16 111/73 (86) 98 Nasal Cannula 04/25/17 08:00 Nasal Cannula 2.0 General Appearance: WD/WN, NO APPARENT DISTRESS Head: NORMOCEPHALIC, ATRAUMATIC Eyes: PERRLA, NO DISCHARGE, EOMI ENT: NORMAL THROAT EXAM Neck: NORMAL RANGE OF MOTION, NO TENDERNESS Respiratory: BREATH SOUNDS NORMAL, other (Decreased breath sound bilaterally.) Cardiovasular: REGULAR RATE/RHYTHM, NORMAL S1S2, NO M/G/R, other (irregularly, irregular) Abdomen: NON TENDER, NORMAL BOWEL SOUNDS Genitourinary - Female: other (rose catheter) Back: NORMAL INSPECTION, NO MIDLINE TENDERNESS Upper Extremities: NO EDEMA, NO DEFORMITY, NORMAL ROM, other (bilateral upper extremity edema and swelling) Lower Extremities: other (+ 3 bilateral edema. ) Pulses: dorsalis pedis (R), dorsalis pedis (L) (2+) Neuro: ALERT, ORIENTED x 3, NORMAL CEREBELLAR EXAM, NORMAL MEMORY Psychiatric: NORMAL AFFECT, NO SUICIDAL IDEATION, CONTRACTS FOR SAFETY Diagnostics Labs Results Past 24 Hours Test 04/25/17 15:36 04/25/17 16:33 04/26/17 04:44 Range/Units White Blood Count 5.57 4.8-10.8 K/uL Red Blood Count 4.19 4.2-5.4 M/uL Hemoglobin 12.6 12.0-16.0 g/dL Hematocrit 43.8 37-47 % Mean Corpuscular Volume 104.5 80-100 fL Mean Corpuscular Hemoglobin 30.1 25-34 pg Mean Corpuscular Hemoglobin Concent 28.8 32-36 g/dl Platelet Count 111 130-400 K/uL Mean Platelet Volume 9.6 7.4-10.4 fL Neutrophils (%) (Auto) 65.4 % Lymphocytes (%) (Auto) 16.3 % Monocytes (%) (Auto) 16.2 % Eosinophils (%) (Auto) 1.4 % Basophils (%) (Auto) 0.5 % Neutrophils # (Auto) 3.64 1.4-6.5 K/uL Lymphocytes # (Auto) 0.91 1.2-3.4 K/uL Monocytes # (Auto) 0.90 0.11-0.59 K/uL Eosinophils # (Auto) 0.08 0-0.5 K/uL Basophils # (Auto) 0.03 0-0.2 K/uL RDW Standard Deviation 59.7 36.4-46.3 fL RDW Coefficient of Variation 15.6 11.5-14.5 % Immature Granulocyte % (Auto) 0.2 % Immature Granulocyte # (Auto) 0.01 0.00-0.02 K/uL Sodium Level 138 136-145 mmol/L Potassium Level 4.7 3.5-5.1 mmol/L Chloride Level 94 98-107 mmol/L Carbon Dioxide Level 42 21-32 mmol/L Anion Gap 2.0 3-11 mmol/L Blood Urea Nitrogen 26 7-18 mg/dl Creatinine 1.26 0.60-1.20 mg/dl Est Creatinine Clear Calc Drug Dose 43.2 ml/min Estimated GFR () 47.9 Estimated GFR (Non- 41.4 BUN/Creatinine Ratio 20.5 10-20 Random Glucose 98 70-99 mg/dl Calcium Level 8.3 8.5-10.1 mg/dl Magnesium Level 2.5 1.8-2.4 mg/dl Total Bilirubin 0.6 0.2-1 mg/dl Aspartate Amino Transf (AST/SGOT) 27 15-37 U/L Alanine Aminotransferase (ALT/SGPT) 15 12-78 U/L Alkaline Phosphatase 90 45-117 U/L Troponin I 0.071 0-0.045 ng/ml Total Protein 6.3 6.4-8.2 gm/dl Albumin 2.7 3.4-5.0 gm/dl Globulin 3.6 2.5-4.0 gm/dl Albumin/Globulin Ratio 0.7 0.9-2 Arterial Blood pH 7.31 7.35-7.45 Arterial Blood Partial Pressure CO2 86 35-46 mmHg Arterial Blood Partial Pressure O2 137 80-95 mm/Hg Arterial Blood HCO3 42 19-24 mmol/L Arterial Blood Oxygen Saturation 98.5 90-95 % Arterial Blood Base Excess 12.2 -9-1.8 mEq/L Arterial Blood Gas Delivery 40% Abhishek Test POS POS Microbiology Results 04/26/17 Urine Culture, Received Pending Diagnostic Radiology HEAD WITHOUT CONTRAST (CT) 04/25/2017 CLINICAL HISTORY: 76 years-old Female presenting with lethargy. recent fall and on anticoagulation. TECHNIQUE: Multidetector CT imaging of the head was performed without the use of intravenous contrast. IV contrast: None. A dose lowering technique was used consistent with the principles of ALARA (as low as reasonably achievable). COMPARISON: None. CT DOSE (mGy.cm): The estimated cumulative dose is 614.27 mGy.cm. FINDINGS: Hogshead Dumper topogram: Unremarkable. Ventricles and sulci normal in size. Brain parenchyma normal in appearance with preserved paiz-white differentiation. No mass effect or midline shift. No hemorrhage or acute territorial infarct. No extra-axial fluid collection. Paranasal sinuses and mastoid air cells clear. Calvarium intact. IMPRESSION: 1. No acute intracranial pathology. (CHEST FOR PE) ANGIO WITH 04/25/2017 CLINICAL HISTORY: 76 years-old Female presenting with respiratory failure, hypoxia, hypercapnia, clinical concern for pulmonary embolus. TECHNIQUE: Multidetector CT angiography of the chest was performed after administration of intravenous contrast. 3-D volumetric and/or maximum intensity projection (MIP) images were subsequently reconstructed for review. IV contrast: 94 mL of Optiray 320. A dose lowering technique was used consistent with the principles of ALARA (as low as reasonably achievable). COMPARISON: Chest x-ray performed earlier the same day. CT DOSE (mGy.cm): The estimated cumulative dose is 462.07 mGycm. FINDINGS: Hogshead Dumper topogram: Low lung volumes and 2-lead pacer. Pulmonary vasculature: The study is suboptimal for the assessment of the pulmonary vascular tree given the presence of a restaurant motion artifact. Within this limitation, no central filling defect. Evaluation of segmental and subsegmental pulmonary arteries limited. Main pulmonary artery enlarged measuring 4.4 cm in transverse dimension. No flattening of the interventricular septum. No intracardiac intracardiac filling defect. There is reflux of contrast into the IVC and hepatic veins suggesting elevated right heart pressures. Remaining chest: On soft tissue windows, left subclavian implanted pacer with leads to the right atrium and right ventricular apex. Extensive collateral veins noted in the right upper extremity suggesting possible venous stenosis centrally, although no focal filling defect or obstruction of central venous structures is evident. No axillary, supraclavicular, hilar, or mediastinal lymphadenopathy. Atherosclerosis of aortic arch. Mild multichamber enlargement of the heart. No pericardial effusion. Small bilateral pleural effusions. Hyperdense material in the region of the left hepatic lobe may represent ballistic fragments or other foreign body. Extensive streak artifact results from positioning of the arms at the sides limiting evaluation of the upper abdomen. On lung windows, dependent consolidation and volume loss in the lower lobes. Minimal groundglass opacity in the right middle lobe. Minimal debris noted dependently in the upper trachea. On bone windows, thoracic kyphosis. Degenerative changes of the spine. Degenerative changes of the right glenohumeral joint. Osteopenia. IMPRESSION: 1. Allowing for extensive streak artifact secondary to arm positioning and respiratory motion, no central filling defect in the pulmonary arterial tree to suggest pulmonary embolus. 2. Findings loss and dependent consolidation of the lower lobes suggests extensive atelectasis. 3. Enlargement of the main pulmonary artery suggest pulmonary hypertension. Elevated right heart pressures as further evidenced by reflux of contrast into the IVC and hepatic veins. 4. Minimal groundglass opacity in the right middle lobe. Infectious etiology is difficult to exclude, however, the region involved is rather limited. Correlate clinically. TTE 04/25/2017 -- Conclusions -- * Normal LV chamber size with mild concentric LVH. * Normal LV systolic function, EF 55-60%. * No segmental left ventricular wall motion abnormalities are noted. * Aortic valve sclerosis moderate, without significant aortic valvular stenosis. * Moderate aortic valve sclerosis without stenosis. Mild aortic regurgitation. * Mild mitral regurgitation. * Severe tricuspid regurgitation. * Moderate left atrial enlargment. * Severe right atrial enlargement. * Pulmonary hypertension is present with a PASP of 43 mmHg assuming a RA pressure of 15 mmHg. CHEST 2 VIEWS ROUTINE 04/25/2017 CLINICAL HISTORY: EXACT TIME ORDERED Evaluate for pneumothorax and lead placement COMPARISON STUDY: 04/23/2017 FINDINGS: Placement of a permanent bipolar cardiac pacemaker. Leads are in good position. No evidence pneumothorax. Mild bibasilar atelectasis. IMPRESSION: Permanent bipolar cardiac pacemaker placement with leads in good position. No evidence for pneumothorax. Mild bibasilar platelike atelectasis. VENOUS DOPPLER LWR EXT BILA 04/23/2017 HISTORY: Pain pain, edema COMPARISON STUDY: None. FINDINGS: There is normal compressibility, flow, and augmentation within the bilateral lower extremity deep venous systems. IMPRESSION: No DVT within the right or left lower extremity. CHEST ONE VIEW PORTABLE 04/23/2017 HISTORY: 76 years-old Female EVALUATE RESPIRATORY DISTRESS.DYSPNEA acute respiratory distress COMPARISON: None available TECHNIQUE: Portable semiupright AP view of the chest FINDINGS: The exam is very limited secondary to patient's side bent to the right and rotated to the left with hypoinflation. Bronchovascular crowding is noted with subsegmental bibasilar opacities suggesting atelectasis. There is atherosclerosis of the aorta. Cardiac silhouette is enlarged. There is no pneumothorax or large pleural effusion. Bones of the chest appear grossly intact. Surgical clips project over the right upper abdomen. IMPRESSION: 1. Limited study secondary to positioning and hypoinflation with bronchovascular crowding. 2. Cardiomegaly without overt pulmonary edema. 3. Subsegmental bibasilar opacities suggest atelectasis. Impression Assessment and Plan Acute on chronic hypoxic hypercapnic respiratory failure Syncope vs seizure New onset Atrial fibrillation Pulmonary hypertension Diastolic dysfunction Morbid obesity Ms Rojas has acute on chronic hypercapnic respiratory failure. She is on LTOT for chronic hypoxemia. She carries the diagnosis of COPD, but no official studies available to review FEV1. On review of her images, she has extremely low lung volumes which have led to both chronic hypoxemia and hypercapnia. She may also have an element of DENNY. TTE shows severe tricuspid regurgitation and biatrial enlargement suggestive of longstanding diastolic dysfunction. RVSP are elevated, which is likely secondary to both chronic hypoxemia Type III and diastolic dysfunction Type II. Nonetheless, the treatment for this is to optimize underlying cause. New onset tachybrady syndrome also is probably a result of this chronic hypoxemia. Recommendations Continue with supplemental oxygenation to maintain SaO2 between 88-92% Continue with BIPAP at night. Looking at her ABGs she should qualify for a home BIPAP machine. She should have official sleep study to obtain adequate settings and PFT to evaluate for obstructive lung disease. She may have a component of both. I would discontinue Solumedrol at this time. I do not feel she is in exacerbation of COPD. She does no have cough, shortness of breath change in sputum production. At the current time she is not on any bronchodilators, LABA or LAMA to suggest underlying COPD. Due to diastolic dysfunction, increased IVC. She may benefit from diuresis. Check ammonia level as this may also be contributing to confusion as looks like she does have an element of hepatic congestion. Encouraged weight loss. She should avoid operating heavy machinery, use alcohol and sedatives on until DENNY is fully worked up. Send TSH. Continue to optimize cardiac function per cardiology's recommendations. I appreciate the consult. Please contact me if you have any questions or concerns.
[2017-04-26] MEDS: CITALOPRAM 20 MG TAB PO SCH (09:16)
[2017-04-26] MEDS: METOPROLOL SUCC 50MG EXT REL TAB PO SCH (09:16)
[2017-04-26] MEDS: ASPIRIN 81 MG ECTAB PO SCH (09:16)
[2017-04-26] MEDS: FUROSEMIDE INJ 40 MG in SYRINGE 0 ML IV SCH (09:19)
--- NOTE | 2017-04-26 10:04 | Cardiology Follow-Up ---
Subjective Subjective Date of Service: Apr 26, 2017. Pt evaluation today including: physical exam, chart review, lab review, review of studies, review of inpatient medication list Additional Details: Pt seen and examined, states that she feels angry and does not want to be hospitalized. Denies cp, sob, palpitations, lightheadedness or dizziness. Tele reviewed: afib/paced rhythm Problem List Social History Problems: (1) Acute respiratory failure with hypoxia Status: Acute (2) CHF exacerbation Status: Acute (3) COPD (chronic obstructive pulmonary disease) Status: Chronic Review of Systems Respiratory: + shortness of breath, + dyspnea on exertion, No see HPI, No cough , No sputum, No wheezing, No dyspnea at rest, No hemoptysis, No problem reported Cardiac: No see HPI, No chest pain, No orthopnea, No PND, No edema, No claudication, No palpitations, No problem reported Objective Vital Signs Last Vital Signs Documentation Date Time Temp Pulse Resp B/P (MAP) Pulse Ox O2 Delivery O2 Flow Rate FiO2 04/26/17 08:18 36.8 88 18 128/66 (86) 98 04/26/17 07:27 Nasal Cannula 4.0 04/26/17 04:00 30 Physical Exam: General Appearance: WD/WN, no apparent distress Eyes: bilateral eyes normal inspection, bilateral eyes PERRL, bilateral eyes EOMI ENT: normal ENT inspection, hearing grossly normal, pharynx normal Neck: supple, no adenopathy, thyroid normal, no JVD, no carotid bruits, trachea midline Respiratory/Chest: + pertinent finding (pocket site erythmatous but appropriate , no hemorrhage) Cardiovascular: no JVD, + tachycardia, + systolic murmur, + irregularly irregular Abdomen: normal bowel sounds, non tender, soft, no organomegaly, no pulsatile mass Extremities: normal inspection, no pedal edema, no calf tenderness Neurologic/Psychiatric: systems security consultant II-XII nml as tested, no motor/sensory deficits, alert, normal mood/affect, oriented x 3 Skin: normal color, warm/dry, no rash Lymphatic: no adenopathy Assessment and Plan 1. syncope likely secondary to significant bradycardia s/p dual chamber permanent pacemaker tolerated well 2. SSS rates now well controlled cont metoprolol succinate 50mg daily for now, can uptitrate as outpatient can add cardizem or dig if bp does not tolerate higher BB doses 3. new onset atrial fibrillation increased rates will increase metoprolol succinate to 50mg daily, can further uptitrate or add cardizem or dig for further rate control coumadin started, goal INR 2-3 ok to d/c to home with Lovenox bridge from cardiac standpoint ok to d/c to home from cardiac standpoint
[2017-04-26] MEDS: WARFARIN SOD 5 MG TAB PO SCH (16:02)
--- NOTE | 2017-04-26 17:12 | Progress Note ---
Internal Med Progress Note Date of Service: Apr 26, 2017. Provider Documentation: SUBJECTIVE: s/p pace maker 04/24/17 sitting on the chair comfortably afebrile;e denies sob or cough no chest pain OBJECTIVE: Vital Signs-as noted below Exam: General-alert and oriented. Not in distress ENT-normal hearing Neck-no neck masses Lungs- cta b/l no wheezing present no crackles Heart-s1 and s2 heard regular rate and rhythm no murmurs s/p pacemaker placement -site clean Abdomen-soft bowel sounds present no tenderness present no distension Extremities- no erythema b/l lower extremity edema present Neuro-alert and oriented moves extremities Lab data as noted below. ASSESSMENT & PLAN: ACUTE ON CHRONIC HYPOXIC, HYPERCAPNIC RESPIRATORY FAILURE presented with unresponsive episode ABG shows acidosis initially was placed on bipap chronically on oxygen 2lts DENNY? copd had pace maker placement on 04/24/17 for tachybrady syndrome on 04/25/17 again somewhat lethargic and abg shows co2 retention started back on bipap, iv steroids and nebs Ct chest no PE but extensive atelectasis avoid Ativan pulmonary consulted and recommends bipap q hs, diuretics for elevated RSVP and sleep study and pft's as out patient stopped iv steroids NEW ONSET ATRIAL FIBRILLATION Unresponsive episode mostly from bradycardia Tachybrady syndrome s/p pace maker placement 04/24/17 was initially on heparin currently started on Coumadin inr 1.4 ARF mostly from above resolved will f/u labs. LACTIC ACIDEMIA likely from hypoxia normal on recheck Acute on chronic diastolic CHF lower extremity edema placed on iv Lasix daily 'will monitor HYPOTHYROIDISM on levothyroxine DEPRESSION on citalopram DVT PROPHYLAXIS hep sub q CODE STATUS Patient is a DNR as per h and p DISPOSITION monitor in tele pt/ot possible d/c to snf in am Vital Signs: Date Time Temp Pulse Resp B/P (MAP) Pulse Ox O2 Delivery O2 Flow Rate FiO2 04/26/17 16:06 36.5 68 18 129/68 (88) 96 04/26/17 14:33 60 20 98 Nasal Cannula 4.0 04/26/17 12:48 36.5 89 18 122/71 (88) 95 04/26/17 12:00 Nasal Cannula 4.0 04/26/17 08:18 36.8 88 18 128/66 (86) 98 Nasal Cannula 4.0 04/26/17 08:00 Nasal Cannula 4.0 04/26/17 07:27 63 20 96 Nasal Cannula 4.0 04/26/17 04:00 CPAP 30 04/26/17 04:00 36.3 71 134/81 (98) 96 CPAP 30 04/26/17 01:42 86 20 95 BiPAP/CPAP 30 04/26/17 00:00 99 CPAP 2.0 30 04/25/17 22:55 36.5 81 16 123/75 (91) 99 CPAP 04/25/17 20:00 98 BiPAP 30 04/25/17 19:46 36.5 48 16 108/70 (83) 93 BiPAP 04/25/17 19:19 80 95 30 04/25/17 19:18 82 20 95 BiPAP/CPAP 30 Lab Results: Results Past 24 Hours Test 04/26/17 07:31 04/26/17 10:34 Range/Units White Blood Count 4.40 4.8-10.8 K/uL Red Blood Count 4.24 4.2-5.4 M/uL Hemoglobin 12.9 12.0-16.0 g/dL Hematocrit 43.6 37-47 % Mean Corpuscular Volume 102.8 80-100 fL Mean Corpuscular Hemoglobin 30.4 25-34 pg Mean Corpuscular Hemoglobin Concent 29.6 32-36 g/dl Platelet Count 105 130-400 K/uL Mean Platelet Volume 9.8 7.4-10.4 fL Neutrophils (%) (Auto) 84.3 % Lymphocytes (%) (Auto) 11.6 % Monocytes (%) (Auto) 3.9 % Eosinophils (%) (Auto) 0.0 % Basophils (%) (Auto) 0.0 % Neutrophils # (Auto) 3.71 1.4-6.5 K/uL Lymphocytes # (Auto) 0.51 1.2-3.4 K/uL Monocytes # (Auto) 0.17 0.11-0.59 K/uL Eosinophils # (Auto) 0.00 0-0.5 K/uL Basophils # (Auto) 0.00 0-0.2 K/uL RDW Standard Deviation 57.8 36.4-46.3 fL RDW Coefficient of Variation 15.3 11.5-14.5 % Immature Granulocyte % (Auto) 0.2 % Immature Granulocyte # (Auto) 0.01 0.00-0.02 K/uL Prothrombin Time 14.7 9.0-12.0 SECONDS Prothromb Time International Ratio 1.4 0.9-1.1 Activated Partial Thromboplast Time 28.9 21.0-31.0 SECONDS Partial Thromboplastin Ratio 1.1 Sodium Level 138 136-145 mmol/L Potassium Level 4.6 3.5-5.1 mmol/L Chloride Level 93 98-107 mmol/L Carbon Dioxide Level 43 21-32 mmol/L Anion Gap 2.0 3-11 mmol/L Blood Urea Nitrogen 26 7-18 mg/dl Creatinine 1.11 0.60-1.20 mg/dl Est Creatinine Clear Calc Drug Dose 49.6 ml/min Estimated GFR () 55.9 Estimated GFR (Non- 48.2 BUN/Creatinine Ratio 23.6 10-20 Random Glucose 115 70-99 mg/dl Calcium Level 8.6 8.5-10.1 mg/dl Ammonia 12.5 11-32 umol/L Microbiology Results 04/26/17 Urine Culture, Received Pending
[2017-04-27] VITALS (15 sets, daily range): BP systolic 91–192; BP diastolic 60–131; PULSE 63–100; TEMP 36.3–37; O2SAT 92–99
[2017-04-27] MEDS: IPRATROPIUM BROMIDE NEB SOLN 0.02% 2.5 ML VIAL INH SCH ×4 (02:07→19:54)
[2017-04-27] MEDS: LEVALBUTEROL 0.63MG/3 ML NEB INH SCH ×4 (02:08→19:30)
[2017-04-27] MEDS: LEVOTHYROXINE 112 MCG TAB PO SCH (05:49)
[2017-04-27 07:41] LABS: INR 2.2 (0.9-1.1); PARTIAL THROMBOPLASTIN RATIO 1.2; PROTHROMBIN TIME (PATIENT) 24.5 SECONDS (9.0-12.0)
[2017-04-27 08:02] LABS: BUN/CREATININE RATIO 22.5 (10-20); CALCIUM 8.4 mg/dl (8.5-10.1); CREATININE 1.54 mg/dl (0.60-1.20); MAGNESIUM 2.5 mg/dl (1.8-2.4)
[2017-04-27 08:36] LABS: BASO % 0.8 %; BASO ABS # 0.05 K/uL (0-0.2); COMPLETE YES; EOS % 2.2 %; HEMATOCRIT 42.1 % (37-47); IG% 0.2 %; LYMPH % 18.4 %; LYMPH ABS # 1.17 K/uL (1.2-3.4); MEAN CELL VOLUME 101.7 fL (80-100); MEAN CORPUSCULAR HGB CONC 29.5 g/dl (32-36); MEAN PLATELET VOLUME 9.8 fL (7.4-10.4); NEUT % 64.4 %; PLATELET COUNT 125 K/uL (130-400); RED BLOOD COUNT 4.14 M/uL (4.2-5.4); WHITE BLOOD COUNT 6.37 K/uL (4.8-10.8)
[2017-04-27] MEDS: CITALOPRAM 20 MG TAB PO SCH (09:15)
[2017-04-27] MEDS: FUROSEMIDE INJ 40 MG in SYRINGE 0 ML IV SCH (09:16)
[2017-04-27] MEDS: ASPIRIN 81 MG ECTAB PO SCH (09:16)
[2017-04-27] MEDS: METOPROLOL SUCC 50MG EXT REL TAB PO SCH (09:16)
[2017-04-27] MEDS ORDERED: METOPROLOL SUCC 25MG EXT REL TAB PO ONE (10:45)
--- NOTE | 2017-04-27 10:54 | Cardiology Follow-Up ---
Subjective Subjective Date of Service: Apr 27, 2017. Pt evaluation today including: conversation w/ patient, physical exam, chart review, lab review, review of studies, review of inpatient medication list Additional Details: Pt seen and examined, states that she's feeling ok. Denies cp, sob, palpitations , lightheadedness or dizziness. tele reviewed: afib rates 80's -90's. Problem List Social History Problems: (1) Acute respiratory failure with hypoxia Status: Acute (2) CHF exacerbation Status: Acute (3) COPD (chronic obstructive pulmonary disease) Status: Chronic Review of Systems Respiratory: + shortness of breath, + dyspnea on exertion, No see HPI, No cough , No sputum, No wheezing, No dyspnea at rest, No hemoptysis, No problem reported Cardiac: No see HPI, No chest pain, No orthopnea, No PND, No edema, No claudication, No palpitations, No problem reported Objective Vital Signs Last Vital Signs Documentation Date Time Temp Pulse Resp B/P (MAP) Pulse Ox O2 Delivery O2 Flow Rate FiO2 04/27/17 08:00 36.9 80 16 113/60 (77) 99 04/27/17 07:04 Nasal Cannula 3.0 04/27/17 04:00 30 Physical Exam: General Appearance: WD/WN, no apparent distress Eyes: bilateral eyes normal inspection, bilateral eyes PERRL, bilateral eyes EOMI ENT: normal ENT inspection, hearing grossly normal, pharynx normal Neck: supple, no adenopathy, thyroid normal, no JVD, no carotid bruits, trachea midline Respiratory/Chest: + pertinent finding (pocket site erythmatous but appropriate , no hemorrhage) Cardiovascular: no JVD, + tachycardia, + systolic murmur, + irregularly irregular Abdomen: normal bowel sounds, non tender, soft, no organomegaly, no pulsatile mass Extremities: normal inspection, no pedal edema, no calf tenderness 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 syncope likely secondary to significant bradycardia s/p dual chamber permanent pacemaker tolerated well 2. SSS rates now improved 3. new onset atrial fibrillation INR now 2.2 will give one time extra dose of metoprolol succinate 25mg x1 now otherwise, ok to d/c to home from cardiac standpoint ok to d/c to home from cardiac standpoint
--- NOTE | 2017-04-27 13:45 | Pulmonology Progress Note ---
Pulmonary Progress Note Date of Service Apr 27, 2017. Attending Dr. Haley Subjective Patient seen and examined. Currently having lunch. She states that she is feeling fine. She denies any chest pain, or cough. Still shortness of breath intermittently and on exertion. States that she had a large bowel movement this morning, described it as "dark. " in color. States that she want to be discharged back home with nursing care. Does not want to go to penitentiary. Objective VS reviewed. Gen: AAOx3, NAD, speaking in full sentences without any respiratory distress CVS; S2, S2, irregularly irregular Lungs: diminished breath sound bilaterally, Abd: obese/NT/ND/BS+ Ext: bilateral lower extremity edema and erythema, no cyanosis, no clubbing. Edema of extremities +1. Labs reviewed. CO2 40, BUN 35, Cr 1.54. No new labs today. Assessment & Plan Acute on chronic hypoxic hypercapnic respiratory failure Syncope vs seizure New onset Atrial fibrillation Pulmonary hypertension Diastolic dysfunction Morbid obesity Ms Rojas doing well from a respiratory point. She is stable on NC. Recommendations Continue with supplemental oxygenation to maintain SaO2 between 88-92% Continue with BIPAP at night. Discharge home with BIPAP machine. She should have official sleep study to obtain adequate settings and PFT to evaluate for obstructive lung disease. She may have a component of both. Continue with diuresis Encouraged weight loss. She should avoid operating heavy machinery, use alcohol and sedatives on until DENNY is fully worked up. Continue to optimize cardiac function per cardiology's recommendations. Continue with DVT ppx and anticoagulation with Coumadin. She should follow up with pulmonary in 1-2 weeks post hospital discharge. I will sign off case today. Please contact me if you have any questions or concerns. Data Medications: Current Inpatient Medications Medications (Trade) Dose Ordered Sig/Adair Route Start Time Stop Time Status Last Admin Dose Admin Ondansetron HCl (Zofran Inj) 4 mg Q6H PRN IV 04/23/17 16:00 05/23/17 15:59 Aspirin (Ecotrin Tab) 81 mg DAILY PO 04/24/17 09:00 05/24/17 08:59 04/27/17 09:16 81 MG Levothyroxine Sodium (Synthroid Tab) 112 mcg DAILYBB PO 04/24/17 06:30 05/24/17 06:29 04/27/17 05:49 112 MCG Citalopram Hydrobromide (celeXA TAB) 10 mg DAILY PO 04/24/17 09:00 05/24/17 08:59 04/27/17 09:15 10 MG Acetaminophen (Tylenol Tab) 650 mg Q4H PRN PO 04/24/17 13:30 05/24/17 13:29 04/26/17 03:48 650 MG Metoprolol Succinate (Toprol Xl Tab) 50 mg QAM PO 04/25/17 09:30 05/25/17 09:29 04/27/17 09:16 50 MG Polyethylene (Miralax Powder Packet) 17 gm DAILY PRN PO 04/25/17 11:15 05/25/17 11:14 04/26/17 09:25 17 GM Ioversol (Optiray 320) 100 ml UD PRN IV 04/25/17 15:00 04/29/17 14:59 Ipratropium Marion (Atrovent 0.02% 0.5MG/2.5ML Neb) 0.5 mg Q4H PRN INH 04/25/17 16:15 05/25/17 16:14 Levalbuterol (Xopenex 1.25MG/ 0.5ML Neb) 1.25 mg Q4H PRN INH 04/25/17 16:15 05/25/17 16:14 Ipratropium Marion (Atrovent 0.02% 0.5MG/2.5ML Neb) 0.5 mg Q6R INH 04/25/17 21:00 05/25/17 20:59 04/27/17 07:04 0.5 MG Levalbuterol (Xopenex 0.63 Mg/ 3 Ml Neb) 0.63 mg Q6R INH 04/25/17 21:00 05/25/17 20:59 04/27/17 07:04 0.63 MG Warfarin Sodium (Coumadin Tab) 5 mg DAILY@16 PO 04/25/17 16:00 05/25/17 15:59 04/26/17 16:02 5 MG Vital Signs: Date Time Temp Pulse Resp B/P (MAP) Pulse Ox O2 Delivery O2 Flow Rate FiO2 04/27/17 08:00 36.9 80 16 113/60 (77) 99 04/27/17 07:04 100 18 97 Nasal Cannula 3.0 04/27/17 04:00 98 BiPAP 30 04/27/17 04:00 36.4 92 22 192/131 (151) 96 BiPAP 04/27/17 03:31 37.0 84 20 108/65 (79) 95 Nasal Cannula 4.0 84 04/27/17 02:07 63 20 98 BiPAP/CPAP 30 04/27/17 00:00 86 22 120/68 (85) 96 BiPAP 04/27/17 00:00 98 BiPAP 30 04/26/17 20:08 36.7 98 16 97/65 (76) 94 Nasal Cannula 04/26/17 20:00 98 BiPAP 30 04/26/17 20:00 60 20 98 BiPAP/CPAP 30 04/26/17 16:06 36.5 68 18 129/68 (88) 96 Nasal Cannula 2.0 04/26/17 16:00 Nasal Cannula 2.0 04/26/17 14:33 60 20 98 Nasal Cannula 4.0 Laboratory Results: Last 24 Hours Test 04/27/17 06:55 White Blood Count 6.37 K/uL Red Blood Count 4.14 M/uL Hemoglobin 12.4 g/dL Hematocrit 42.1 % Mean Corpuscular Volume 101.7 fL Mean Corpuscular Hemoglobin 30.0 pg Mean Corpuscular Hemoglobin Concent 29.5 g/dl Platelet Count 125 K/uL Mean Platelet Volume 9.8 fL Neutrophils (%) (Auto) 64.4 % Lymphocytes (%) (Auto) 18.4 % Monocytes (%) (Auto) 14.0 % Eosinophils (%) (Auto) 2.2 % Basophils (%) (Auto) 0.8 % Neutrophils # (Auto) 4.11 K/uL Lymphocytes # (Auto) 1.17 K/uL Monocytes # (Auto) 0.89 K/uL Eosinophils # (Auto) 0.14 K/uL Basophils # (Auto) 0.05 K/uL RDW Standard Deviation 56.2 fL RDW Coefficient of Variation 15.3 % Immature Granulocyte % (Auto) 0.2 % Immature Granulocyte # (Auto) 0.01 K/uL Prothrombin Time 24.5 SECONDS Prothromb Time International Ratio 2.2 Activated Partial Thromboplast Time 30.8 SECONDS Partial Thromboplastin Ratio 1.2 Sodium Level 135 mmol/L Potassium Level 5.0 mmol/L Chloride Level 90 mmol/L Carbon Dioxide Level 40 mmol/L Anion Gap 5.0 mmol/L Blood Urea Nitrogen 35 mg/dl Creatinine 1.54 mg/dl Est Creatinine Clear Calc Drug Dose 35.7 ml/min Estimated GFR () 37.6 Estimated GFR (Non- 32.4 BUN/Creatinine Ratio 22.5 Random Glucose 77 mg/dl Calcium Level 8.4 mg/dl Magnesium Level 2.5 mg/dl
[2017-04-27] MEDS: WARFARIN SOD 5 MG TAB PO SCH (16:05)
--- NOTE | 2017-04-27 17:17 | Progress Note ---
Internal Med Progress Note Date of Service: Apr 27, 2017. Provider Documentation: SUBJECTIVE: s/p pace maker 04/24/17 resting comfortably denies chest pain or sob moved bowels today afebrile want to wait until Saturday to go to SNF OBJECTIVE: Vital Signs-as noted below Exam: General-alert and oriented. Not in distress ENT-normal hearing Neck-no neck masses Lungs- cta b/l no wheezing present no crackles Heart-s1 and s2 heard regular rate and rhythm no murmurs s/p pacemaker placement -site clean Abdomen-soft bowel sounds present no tenderness present no distension Extremities- no erythema b/l lower extremity edema present Neuro-alert and oriented moves extremities Lab data as noted below. ASSESSMENT & PLAN: ACUTE ON CHRONIC HYPOXIC, HYPERCAPNIC RESPIRATORY FAILURE presented with unresponsive episode ABG shows acidosis initially was placed on bipap chronically on oxygen 2lts DENNY? copd had pace maker placement on 04/24/17 for tachybrady syndrome on 04/25/17 again somewhat lethargic and abg shows co2 retention started back on bipap, iv steroids and nebs Ct chest no PE but extensive atelectasis avoid Ativan pulmonary consulted and recommends bipap q hs, diuretics for elevated RSVP and sleep study and pft's as out patient stopped iv steroids stable currently NEW ONSET ATRIAL FIBRILLATION Unresponsive episode mostly from bradycardia Tachybrady syndrome s/p pace maker placement 04/24/17 was initially on heparin currently started on Coumadin inr 2.2 today ARF mostly from above will f/u labs. LACTIC ACIDEMIA likely from hypoxia normal on recheck Acute on chronic diastolic CHF lower extremity edema placed on iv Lasix daily which will be held for arf 'will monitor HYPOTHYROIDISM on levothyroxine DEPRESSION on citalopram DVT PROPHYLAXIS hep sub q CODE STATUS Patient is a DNR as per h and p DISPOSITION monitor in tele pt/ot Plan for snf possible on Saturday Vital Signs: Date Time Temp Pulse Resp B/P (MAP) Pulse Ox O2 Delivery O2 Flow Rate FiO2 04/27/17 14:58 36.3 85 20 103/70 (81) 95 Nasal Cannula 2.0 04/27/17 14:13 79 18 97 Nasal Cannula 2.0 04/27/17 12:00 Nasal Cannula 2.0 04/27/17 12:00 36.7 75 16 132/79 (96) 99 Nasal Cannula 4.0 04/27/17 08:00 Nasal Cannula 2.0 04/27/17 08:00 36.9 80 16 113/60 (77) 99 04/27/17 07:04 100 18 97 Nasal Cannula 3.0 04/27/17 04:00 98 BiPAP 30 04/27/17 04:00 36.4 92 22 192/131 (151) 96 BiPAP 04/27/17 03:31 37.0 84 20 108/65 (79) 95 Nasal Cannula 4.0 84 04/27/17 02:07 63 20 98 BiPAP/CPAP 30 04/27/17 00:00 86 22 120/68 (85) 96 BiPAP 04/27/17 00:00 98 BiPAP 30 04/26/17 20:08 36.7 98 16 97/65 (76) 94 Nasal Cannula 04/26/17 20:00 98 BiPAP 30 04/26/17 20:00 60 20 98 BiPAP/CPAP 30 Lab Results: Results Past 24 Hours Test 04/27/17 06:55 Range/Units White Blood Count 6.37 4.8-10.8 K/uL Red Blood Count 4.14 4.2-5.4 M/uL Hemoglobin 12.4 12.0-16.0 g/dL Hematocrit 42.1 37-47 % Mean Corpuscular Volume 101.7 80-100 fL Mean Corpuscular Hemoglobin 30.0 25-34 pg Mean Corpuscular Hemoglobin Concent 29.5 32-36 g/dl Platelet Count 125 130-400 K/uL Mean Platelet Volume 9.8 7.4-10.4 fL Neutrophils (%) (Auto) 64.4 % Lymphocytes (%) (Auto) 18.4 % Monocytes (%) (Auto) 14.0 % Eosinophils (%) (Auto) 2.2 % Basophils (%) (Auto) 0.8 % Neutrophils # (Auto) 4.11 1.4-6.5 K/uL Lymphocytes # (Auto) 1.17 1.2-3.4 K/uL Monocytes # (Auto) 0.89 0.11-0.59 K/uL Eosinophils # (Auto) 0.14 0-0.5 K/uL Basophils # (Auto) 0.05 0-0.2 K/uL RDW Standard Deviation 56.2 36.4-46.3 fL RDW Coefficient of Variation 15.3 11.5-14.5 % Immature Granulocyte % (Auto) 0.2 % Immature Granulocyte # (Auto) 0.01 0.00-0.02 K/uL Prothrombin Time 24.5 9.0-12.0 SECONDS Prothromb Time International Ratio 2.2 0.9-1.1 Activated Partial Thromboplast Time 30.8 21.0-31.0 SECONDS Partial Thromboplastin Ratio 1.2 Sodium Level 135 136-145 mmol/L Potassium Level 5.0 3.5-5.1 mmol/L Chloride Level 90 98-107 mmol/L Carbon Dioxide Level 40 21-32 mmol/L Anion Gap 5.0 3-11 mmol/L Blood Urea Nitrogen 35 7-18 mg/dl Creatinine 1.54 0.60-1.20 mg/dl Est Creatinine Clear Calc Drug Dose 35.7 ml/min Estimated GFR () 37.6 Estimated GFR (Non- 32.4 BUN/Creatinine Ratio 22.5 10-20 Random Glucose 77 70-99 mg/dl Calcium Level 8.4 8.5-10.1 mg/dl Magnesium Level 2.5 1.8-2.4 mg/dl
[2017-04-27] MEDS ORDERED: NURSING VERBAL MED ORDER ONE (19:30)
[2017-04-27] MEDS ORDERED: LORAZEPAM 2 MG/ML 1 ML VIAL ONE (19:35)
[2017-04-27 22:32] LABS: ARTERIAL BLD GAS O2 SATURATION 95.2 % (90-95); ARTERIAL BLOOD GAS BASE EXCESS 14.6 mEq/L (-9-1.8); ARTERIAL BLOOD GAS HCO3 44 mmol/L (19-24); ARTERIAL BLOOD GAS PO2 83 mm/Hg (80-95); ARTERIAL BLOOD GAS pH 7.35 (7.35-7.45)
[2017-04-27 22:36] LABS: ALLEN TEST POS (POS); O2 ADMINISTRATION 30%
[2017-04-28] VITALS (14 sets, daily range): BP systolic 122–146; BP diastolic 67–78; PULSE 67–90; TEMP 36.1–37.2; O2SAT 95–100
[2017-04-28] MEDS: IPRATROPIUM BROMIDE NEB SOLN 0.02% 2.5 ML VIAL INH SCH ×4 (02:02→19:34)
[2017-04-28] MEDS: LEVALBUTEROL 0.63MG/3 ML NEB INH SCH ×4 (02:02→19:35)
[2017-04-28] MEDS: LEVOTHYROXINE 112 MCG TAB PO SCH (06:00)
[2017-04-28 06:15] LABS: HEMATOCRIT 38.6 % (37-47); MEAN CELL VOLUME 101.3 fL (80-100); MEAN CORPUSCULAR HEMOGLOBIN 29.7 pg (25-34); MEAN CORPUSCULAR HGB CONC 29.3 g/dl (32-36); RED BLOOD COUNT 3.81 M/uL (4.2-5.4); WHITE BLOOD COUNT 4.76 K/uL (4.8-10.8)
[2017-04-28 06:34] LABS: MEAN PLATELET VOLUME 9.3 fL (7.4-10.4); PLATELET COUNT 98 K/uL (130-400)
[2017-04-28 06:40] LABS: PARTIAL THROMBOPLASTIN RATIO 1.3
[2017-04-28 06:42] LABS: BASO % 0.6 %; BASO ABS # 0.03 K/uL (0-0.2); COMPLETE YES; EOS % 3.2 %; IG% 0.2 %; LYMPH % 31.5 %; MONO % 12.2 %; NEUT % 52.3 %; OVALOCYTES 1+; PLT ESTIMATE DECREASED; STOMATOCYTE 1+
[2017-04-28 06:45] LABS: INR 3.5 (0.9-1.1)
[2017-04-28 06:54] LABS: ARTERIAL BLD GAS O2 SATURATION 97.3 % (90-95); ARTERIAL BLOOD GAS BASE EXCESS 15.5 mEq/L (-9-1.8); ARTERIAL BLOOD GAS HCO3 44 mmol/L (19-24); ARTERIAL BLOOD GAS PO2 103 mm/Hg (80-95); ARTERIAL BLOOD GAS pH 7.37 (7.35-7.45)
[2017-04-28 06:57] LABS: BUN/CREATININE RATIO 28.6 (10-20); CREATININE 1.18 mg/dl (0.60-1.20); MAGNESIUM 2.6 mg/dl (1.8-2.4); POTASSIUM 4.4 mmol/L (3.5-5.1)
[2017-04-28 07:35] LABS: ALLEN TEST POS (POS); O2 ADMINISTRATION 30%
[2017-04-28] MEDS: ASPIRIN 81 MG ECTAB PO SCH (09:38)
[2017-04-28] MEDS: CITALOPRAM 20 MG TAB PO SCH (09:38)
[2017-04-28] MEDS: METOPROLOL SUCC 50MG EXT REL TAB PO SCH (09:39)
--- NOTE | 2017-04-28 12:23 | Cardiology Follow-Up ---
Subjective Subjective Date of Service: Apr 28, 2017. Pt evaluation today including: conversation w/ patient, physical exam, chart review, lab review, review of studies, review of inpatient medication list Additional Details: Pt seen and examined, lethargic this AM, received sedation overnight. No reports of cp, sob, palpitations, lightheadedness or dizziness. Tele reviewed: atrial fibrillation, rates controlled. occasional V pacing Problem List Social History Problems: (1) Acute respiratory failure with hypoxia Status: Acute (2) CHF exacerbation Status: Acute (3) COPD (chronic obstructive pulmonary disease) Status: Chronic Review of Systems Respiratory: + shortness of breath, + dyspnea on exertion, No see HPI, No cough , No sputum, No wheezing, No dyspnea at rest, No hemoptysis, No problem reported Cardiac: No see HPI, No chest pain, No orthopnea, No PND, No edema, No claudication, No palpitations, No problem reported Objective Vital Signs Last Vital Signs Documentation Date Time Temp Pulse Resp B/P (MAP) Pulse Ox O2 Delivery O2 Flow Rate FiO2 04/28/17 12:00 BiPAP 30 04/28/17 10:46 36.1 67 20 122/75 (91) 96 04/28/17 03:45 1.0 Physical Exam: General Appearance: WD/WN, no apparent distress Eyes: bilateral eyes normal inspection, bilateral eyes PERRL, bilateral eyes EOMI ENT: normal ENT inspection, hearing grossly normal, pharynx normal Neck: supple, no adenopathy, thyroid normal, no JVD, no carotid bruits, trachea midline Respiratory/Chest: + pertinent finding (pocket site erythmatous but appropriate , no hemorrhage) Cardiovascular: no JVD, + tachycardia, + systolic murmur, + irregularly irregular Abdomen: normal bowel sounds, non tender, soft, no organomegaly, no pulsatile mass Extremities: normal inspection, no pedal edema, no calf tenderness 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 syncope likely secondary to significant bradycardia s/p dual chamber permanent pacemaker tolerated well 2. SSS rates now improved 3. new onset atrial fibrillation INR now 3.5, hold coumadin today will give one time extra dose of metoprolol succinate 25mg x1 now otherwise, ok to d/c to home from cardiac standpoint for SNF placement
[2017-04-28] MEDS ORDERED: FUROSEMIDE 20 MG TAB PO PRN (17:30)
--- NOTE | 2017-04-28 17:32 | Progress Note ---
Internal Med Progress Note Date of Service: Apr 28, 2017. Provider Documentation: SUBJECTIVE: s/p pace maker 04/24/17 received iv ativan last night and sleeping most iof the day open eyes on calling denies chest pain or sob afebrile did not eat breakfast and lunch OBJECTIVE: Vital Signs-as noted below Exam: General-alert and oriented. Not in distress ENT-normal hearing Neck-no neck masses Lungs- cta b/l no wheezing present no crackles Heart-s1 and s2 heard regular rate and rhythm no murmurs s/p pacemaker placement -site clean Abdomen-soft bowel sounds present no tenderness present no distension Extremities- no erythema b/l lower extremity edema present-improving Neuro-alert and oriented moves extremities Lab data as noted below. ASSESSMENT & PLAN: 76f presented with an unresponsive episode and found to have co2 retention and required bipap and also new onset afib.Later HR dropped into 30's. s/p pace maker for tachybrady syndrome. Still getting lethargic and co2 retentions. requires bipap while sleeping and needs to discharge on bipap. Sleep study as out patient. Plan for placement possibly on Saturday. Already approved for [facility] ACUTE ON CHRONIC HYPOXIC, HYPERCAPNIC RESPIRATORY FAILURE presented with unresponsive episode ABG shows acidosis initially was placed on bipap chronically on oxygen 2lts DENNY? copd had pace maker placement on 04/24/17 for tachybrady syndrome on 04/25/17 again somewhat lethargic and abg shows co2 retention started back on bipap, iv steroids and nebs Ct chest no PE but extensive atelectasis avoid Ativan pulmonary consulted and recommends bipap q hs, diuretics for elevated RSVP and sleep study and pft's as out patient stopped iv steroids need bipap q hs on discharge and sleep study and pft's as out patient NEW ONSET ATRIAL FIBRILLATION Unresponsive episode mostly from bradycardia Tachybrady syndrome s/p pace maker placement 04/24/17 was initially on heparin currently started on Coumadin inr 3.5 today. Will hold coumadin Delirium received iv Ativan mostly sleeping today try to avoid Ativan ARF mostly from above resolved will f/u labs. LACTIC ACIDEMIA likely from hypoxia normal on recheck Acute on chronic diastolic CHF lower extremity edema placed on iv Lasix daily which will be held for arf restart home po lasix 'will monitor HYPOTHYROIDISM on levothyroxine DEPRESSION on citalopram DVT PROPHYLAXIS hep sub q CODE STATUS Patient is a DNR as per h and p DISPOSITION monitor in tele pt/ot Plan for snf possible on Saturday Vital Signs: Date Time Temp Pulse Resp B/P (MAP) Pulse Ox O2 Delivery O2 Flow Rate FiO2 04/28/17 16:00 Nasal Cannula 4.0 04/28/17 15:50 36.8 67 20 125/74 (91) 98 Nasal Cannula 4.0 04/28/17 14:31 71 22 98 BiPAP/CPAP 30 04/28/17 12:00 BiPAP 30 04/28/17 10:46 36.1 67 20 122/75 (91) 96 BiPAP 04/28/17 08:00 BiPAP 30 04/28/17 07:31 36.4 78 20 130/75 (93) 99 BiPAP 04/28/17 06:56 71 22 98 BiPAP/CPAP 30 04/28/17 06:56 74 97 30 04/28/17 04:00 95 BiPAP 28 04/28/17 03:45 36.8 73 17 134/67 (89) 100 CPAP 1.0 30 04/28/17 02:06 74 95 30 04/28/17 02:02 71 22 95 BiPAP/CPAP 30 04/28/17 00:00 95 BiPAP 30 04/27/17 23:58 36.6 71 17 106/60 (75) 92 CPAP 2.0 30 04/27/17 21:26 70 95 30 04/27/17 20:00 75 95 30 04/27/17 20:00 95 BiPAP 30 04/27/17 19:57 37.0 76 18 91/60 (70) 93 BiPAP 04/27/17 19:30 79 18 97 BiPAP/CPAP 30 Lab Results: Results Past 24 Hours Test 04/27/17 22:23 04/28/17 05:44 04/28/17 06:27 Range/Units Arterial Blood pH 7.35 7.37 7.35-7.45 Arterial Blood Partial Pressure CO2 81 79 35-46 mmHg Arterial Blood Partial Pressure O2 83 103 80-95 mm/Hg Arterial Blood HCO3 44 44 19-24 mmol/L Arterial Blood Oxygen Saturation 95.2 97.3 90-95 % Arterial Blood Base Excess 14.6 15.5 -9-1.8 mEq/L Arterial Blood Gas Delivery 30% 30% Abhishek Test POS POS POS White Blood Count 4.76 4.8-10.8 K/uL Red Blood Count 3.81 4.2-5.4 M/uL Hemoglobin 11.3 12.0-16.0 g/dL Hematocrit 38.6 37-47 % Mean Corpuscular Volume 101.3 80-100 fL Mean Corpuscular Hemoglobin 29.7 25-34 pg Mean Corpuscular Hemoglobin Concent 29.3 32-36 g/dl Platelet Count 98 130-400 K/uL Mean Platelet Volume 9.3 7.4-10.4 fL Neutrophils (%) (Auto) 52.3 % Lymphocytes (%) (Auto) 31.5 % Monocytes (%) (Auto) 12.2 % Eosinophils (%) (Auto) 3.2 % Basophils (%) (Auto) 0.6 % Neutrophils # (Auto) 2.49 1.4-6.5 K/uL Lymphocytes # (Auto) 1.50 1.2-3.4 K/uL Monocytes # (Auto) 0.58 0.11-0.59 K/uL Eosinophils # (Auto) 0.15 0-0.5 K/uL Basophils # (Auto) 0.03 0-0.2 K/uL RDW Standard Deviation 57.7 36.4-46.3 fL RDW Coefficient of Variation 15.4 11.5-14.5 % Immature Granulocyte % (Auto) 0.2 % Immature Granulocyte # (Auto) 0.01 0.00-0.02 K/uL Platelet Estimate DECREASED Ovalocytes 1+ Stomatocytes 1+ Prothrombin Time 39.0 9.0-12.0 SECONDS Prothromb Time International Ratio 3.5 0.9-1.1 Activated Partial Thromboplast Time 34.5 21.0-31.0 SECONDS Partial Thromboplastin Ratio 1.3 Sodium Level 139 136-145 mmol/L Potassium Level 4.4 3.5-5.1 mmol/L Chloride Level 94 98-107 mmol/L Carbon Dioxide Level 41 21-32 mmol/L Anion Gap 4.0 3-11 mmol/L Blood Urea Nitrogen 34 7-18 mg/dl Creatinine 1.18 0.60-1.20 mg/dl Est Creatinine Clear Calc Drug Dose 46.7 ml/min Estimated GFR () 51.9 Estimated GFR (Non- 44.8 BUN/Creatinine Ratio 28.6 10-20 Random Glucose 77 70-99 mg/dl Calcium Level 8.0 8.5-10.1 mg/dl Magnesium Level 2.6 1.8-2.4 mg/dl
[2017-04-28] MEDS ORDERED: LORAZEPAM 2 MG/ML 1 ML VIAL ONE (20:53)
[2017-04-29] VITALS (13 sets, daily range): BP systolic 115–147; BP diastolic 70–80; PULSE 71–85; TEMP 36.6–37; O2SAT 93–98
[2017-04-29] MEDS: IPRATROPIUM BROMIDE NEB SOLN 0.02% 2.5 ML VIAL INH SCH ×4 (02:25→19:46)
[2017-04-29] MEDS: LEVALBUTEROL 0.63MG/3 ML NEB INH SCH ×4 (02:26→19:46)
[2017-04-29] MEDS: LEVOTHYROXINE 112 MCG TAB PO SCH (05:21)
[2017-04-29 06:21] LABS: BASO % 0.8 %; BASO ABS # 0.03 K/uL (0-0.2); COMPLETE YES; EOS % 3.7 %; HEMATOCRIT 40.8 % (37-47); IG% 0.3 %; LYMPH % 26.6 %; MEAN CORPUSCULAR HGB CONC 29.4 g/dl (32-36); MEAN PLATELET VOLUME 9.9 fL (7.4-10.4); MONO % 12.2 %; NEUT % 56.4 %; PLATELET COUNT 119 K/uL (130-400); WHITE BLOOD COUNT 3.76 K/uL (4.8-10.8)
[2017-04-29 06:30] LABS: INR 3.5 (0.9-1.1); PARTIAL THROMBOPLASTIN RATIO 1.4; PROTHROMBIN TIME (PATIENT) 39.8 SECONDS (9.0-12.0)
[2017-04-29 07:01] LABS: BUN/CREATININE RATIO 31.7 (10-20); CALCIUM 8.4 mg/dl (8.5-10.1); CREATININE 0.87 mg/dl (0.60-1.20); MAGNESIUM 2.5 mg/dl (1.8-2.4); POTASSIUM 4.6 mmol/L (3.5-5.1)
[2017-04-29] MEDS: CITALOPRAM 20 MG TAB PO SCH (08:19)
[2017-04-29] MEDS: ASPIRIN 81 MG ECTAB PO SCH (08:19)
[2017-04-29] MEDS: METOPROLOL SUCC 50MG EXT REL TAB PO SCH (08:19)
[2017-04-29] MEDS ORDERED: ATRINS INH (13:43)
[2017-04-29] MEDS ORDERED: XPNINS1255 INH (13:43)
[2017-04-29] MEDS ORDERED: MRLP17X PO (13:43)
[2017-04-29] MEDS ORDERED: WARF2TAB PO (13:43)
[2017-04-29] MEDS ORDERED: TPRSR50 PO (13:43)
--- NOTE | 2017-04-29 13:46 | Discharge Instructions ---
Discharge Instructions Date of Service Apr 29, 2017. Admission Reason for Admission: Respiratory Failure With Hypoxia And Hypercapnia Discharge Discharge Diagnosis / Problem: RESPIRATORY FAILURE HYPOXIA/HYPERCAPNIA/TACHY JOE SYMPTOMS S/P PACEMAKER Discharge Goals Goal(s): Decrease discomfort, Improve disease control, Diagnostic testing, Therapeutic intervention Activity Recommendations Activity Level: Assistance Required Therapies: Physical Therapy, Occupational Therapy Weightbearing Status: Left non-weightbearing Lifting Limitations: no more than 10 pounds (left arm not more than 10 lb for 1 week ) Shower/Bathe: no limitations Cannot lift more than 10 pounds with the left arm for 2 weeks. Can shower , let water run over the incision, do no scrub it for 1 week should follow up in at [facility] Cardiology office with device and wound check in 7-10 days. ACTIVITY RECOMMENDATIONS: * Do not raise affected arm over head /DO NOT lift the left elbow over left shoulder for 1 month. SPECIAL CARE INSTRUCTIONS: * If bleeding occurs, apply direct pressure to area for 5 minutes. * Call your doctor if you have severe pain, fever, drainage or bleeding at site. * Keep dressing on and dry for 48 hours then remove. * Keep any scheduled doctor's appointment. * Implant Card - hand held device with website information given. SKIN IRRITATION: * You may experience some redness and/or swelling in the area where radiation was administered. If any skin irritation occurs, please contact your family physician. FOLLOW UP VISIT: Keep any scheduled doctor appointments. . Additional Information Patient informed of condition: Yes Advance Directives: Yes DNR: Yes Level of Care: Skilled Communicable Disease: No Prognosis: Stable Haley Catheter: No Instructions / Follow-Up Instructions / Follow-Up DO NOT TAKE COUMADIN TODAY OR TOMORROW LAB WORK : INR /PT CHECK ON 04/30 RESUME COUMADIN IF INR < 2 NEED CLOSE FOLLOW UP WITH COAGULATION CLINIC FOR MONITORING OF INR HOSPITAL FOLLOW UP WITH FAMILY PHYSICIAN IN A WEEK PACEMAKER CLINIC FOLLOW UP 05/06/2017 1:00 PM Pacer Clinic [facility] Cardiology, [facility] CONTINUE TO USE BIPAP AT NIGHT WILL NEED PULMONOLOGY FOLLOW UP WITH DR CERVANTES AFTER DISCHARGE FROM REHAB WILL NEED OUT PT PULMONARY FUNCTION TEST IN PULMONOLOGY OFFICE Current Hospital Diet Patient's current hospital diet: AHA Diet (Heart Healthy) Discharge Diet Recommended Diet: AHA Diet (Heart Healthy) Pending Studies Studies pending at discharge: no Medical Emergencies . Who to Call and When: Medical Emergencies: If at any time you feel your situation is an emergency, please call 911 immediately. . Non-Emergent Contact Non-Emergency issues call your: Primary Care Provider . . "Provider Documentation" section prepared by Any Pedersen. . Core Measure Problem Core Measures: None
--- NOTE | 2017-04-29 16:01 | Cardiology Follow-Up ---
Subjective Subjective Date of Service: Apr 29, 2017. Pt evaluation today including: conversation w/ patient, conversation w/ family , physical exam, chart review, lab review, review of studies, review of inpatient medication list Additional Details: Pt seen and examined, more alert today. Denies cp, sob, palpitations, lightheadedness or dizziness. Tele reviewed: afib/vpacing Problem List Social History Problems: (1) Acute respiratory failure with hypoxia Status: Acute (2) CHF exacerbation Status: Acute (3) COPD (chronic obstructive pulmonary disease) Status: Chronic Review of Systems Respiratory: + shortness of breath, + dyspnea on exertion, No see HPI, No cough , No sputum, No wheezing, No dyspnea at rest, No hemoptysis, No problem reported Cardiac: No see HPI, No chest pain, No orthopnea, No PND, No edema, No claudication, No palpitations, No problem reported Objective Vital Signs Last Vital Signs Documentation Date Time Temp Pulse Resp B/P (MAP) Pulse Ox O2 Delivery O2 Flow Rate FiO2 04/29/17 14:23 72 97 30 04/29/17 14:22 26 BiPAP/CPAP 04/29/17 12:00 4.0 04/29/17 11:30 37.0 121/80 (94) Physical Exam: General Appearance: WD/WN, no apparent distress Eyes: bilateral eyes normal inspection, bilateral eyes PERRL, bilateral eyes EOMI ENT: normal ENT inspection, hearing grossly normal, pharynx normal Neck: supple, no adenopathy, thyroid normal, no JVD, no carotid bruits, trachea midline Respiratory/Chest: + pertinent finding (pocket site erythmatous but appropriate , no hemorrhage) Cardiovascular: no JVD, + tachycardia, + systolic murmur, + irregularly irregular Abdomen: normal bowel sounds, non tender, soft, no organomegaly, no pulsatile mass Extremities: normal inspection, no pedal edema, no calf tenderness 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 syncope likely secondary to significant bradycardia s/p dual chamber permanent pacemaker tolerated well 2. SSS rates now improved 3. new onset atrial fibrillation INR now 3.5, hold coumadin today will give one time extra dose of metoprolol succinate 25mg x1 now otherwise, ok to d/c to home from cardiac standpoint for SNF placement
--- NOTE | 2017-04-29 16:50 | Progress Note ---
Internal Med Progress Note Date of Service: Apr 29, 2017. Provider Documentation: SUBJECTIVE: pt found sitting on chair offers no complain of SOB , no chest pain , palpitation no Cough or SOB aware that she is going to [facility] for skilled rehab today and agreeable OBJECTIVE: Vital Signs-as noted below Exam: General-no sign of distress, Eyes-sclera non icteric , PERRLA/EOMI ENT-normal exam Neck-no thyromegaly , no mass, trachea midline Lungs-CTA, no wheeze or rales Heart-regular , no JVD , no lower ext edema Abdomen-soft, non tender , bowel sound active Extremities-no rash or deformity , Neuro-AAO x3, no focal neurological deficit Lab data as noted below. ASSESSMENT & PLAN: ACUTE ON CHRONIC HYPOXIC, HYPERCAPNIC RESPIRATORY FAILURE Clinically improved , respiratory status at baseline presented with unresponsive episode ABG shows acidosis initially was placed on bipap chronically on oxygen 2lts had pace maker placement on 04/24/[address] chest no PE but extensive atelectasis pulmonary consulted and recommends bipap q hs, diuretics for elevated RSVP and sleep study and pft's as out patient arrangements made for Bipap on discharge to [facility] , pt will benefit form out pt sleep study NEW ONSET ATRIAL FIBRILLATION Unresponsive episode mostly from bradycardia Tachybrady syndrome s/p pace maker placement 04/24/17 started on Coumadin on hold today for elevated INR ARF resolved with IVF LACTIC ACIDEMIA likely from hypoxia normal on recheck Acute on chronic diastolic CHF lower extremity edema restart home po Lasix vol status stable HYPOTHYROIDISM on levothyroxine DEPRESSION on citalopram DVT PROPHYLAXIS INR elevated CODE STATUS Patient is a DNR DISPOSITION medically stable to be transferred to SNF [facility] today Vital Signs: Date Time Temp Pulse Resp B/P (MAP) Pulse Ox O2 Delivery O2 Flow Rate FiO2 04/29/17 16:20 37.0 84 20 115/70 (85) 93 Nasal Cannula 3.0 04/29/17 16:00 Nasal Cannula 3.0 04/29/17 14:23 72 97 30 04/29/17 14:22 72 26 97 BiPAP/CPAP 30 04/29/17 12:00 Nasal Cannula 4.0 04/29/17 11:30 37.0 71 20 121/80 (94) 98 Nasal Cannula 3.0 04/29/17 08:00 Nasal Cannula 4.0 04/29/17 07:38 36.6 76 20 124/77 (93) 94 Room Air 04/29/17 07:15 76 16 95 BiPAP/CPAP 30 04/29/17 04:29 36.9 76 17 129/77 (94) 95 CPAP 4.0 30 04/29/17 04:00 95 BiPAP 30 04/29/17 02:27 74 96 30 04/29/17 02:26 74 16 98 BiPAP/CPAP 30 04/29/17 00:14 36.6 85 17 147/79 (101) 95 CPAP 3.0 30 04/29/17 00:00 95 BiPAP 30 04/28/17 22:55 77 96 30 04/28/17 20:02 37.2 90 20 146/78 (100) 97 Nasal Cannula 4.0 04/28/17 20:00 97 BiPAP 30 04/28/17 19:35 68 16 98 Nasal Cannula 3.0 Lab Results: Results Past 24 Hours Test 04/29/17 05:26 Range/Units White Blood Count 3.76 4.8-10.8 K/uL Red Blood Count 4.00 4.2-5.4 M/uL Hemoglobin 12.0 12.0-16.0 g/dL Hematocrit 40.8 37-47 % Mean Corpuscular Volume 102.0 80-100 fL Mean Corpuscular Hemoglobin 30.0 25-34 pg Mean Corpuscular Hemoglobin Concent 29.4 32-36 g/dl Platelet Count 119 130-400 K/uL Mean Platelet Volume 9.9 7.4-10.4 fL Neutrophils (%) (Auto) 56.4 % Lymphocytes (%) (Auto) 26.6 % Monocytes (%) (Auto) 12.2 % Eosinophils (%) (Auto) 3.7 % Basophils (%) (Auto) 0.8 % Neutrophils # (Auto) 2.12 1.4-6.5 K/uL Lymphocytes # (Auto) 1.00 1.2-3.4 K/uL Monocytes # (Auto) 0.46 0.11-0.59 K/uL Eosinophils # (Auto) 0.14 0-0.5 K/uL Basophils # (Auto) 0.03 0-0.2 K/uL RDW Standard Deviation 57.6 36.4-46.3 fL RDW Coefficient of Variation 15.3 11.5-14.5 % Immature Granulocyte % (Auto) 0.3 % Immature Granulocyte # (Auto) 0.01 0.00-0.02 K/uL Prothrombin Time 39.8 9.0-12.0 SECONDS Prothromb Time International Ratio 3.5 0.9-1.1 Activated Partial Thromboplast Time 36.4 21.0-31.0 SECONDS Partial Thromboplastin Ratio 1.4 Sodium Level 141 136-145 mmol/L Potassium Level 4.6 3.5-5.1 mmol/L Chloride Level 95 98-107 mmol/L Carbon Dioxide Level 40 21-32 mmol/L Anion Gap 6.0 3-11 mmol/L Blood Urea Nitrogen 28 7-18 mg/dl Creatinine 0.87 0.60-1.20 mg/dl Est Creatinine Clear Calc Drug Dose 63.4 ml/min Estimated GFR () 75.0 Estimated GFR (Non- 64.7 BUN/Creatinine Ratio 31.7 10-20 Random Glucose 71 70-99 mg/dl Calcium Level 8.4 8.5-10.1 mg/dl Magnesium Level 2.5 1.8-2.4 mg/dl
--- NOTE | 2017-04-29 16:52 | Discharge Summary ---
Discharge Summary Date of Service Apr 29, 2017. Discharge Summary Admission Date: Apr 23, 2017 at 16:07 Discharge Date: Apr 29, 2017 Discharge Disposition: intermediate facility ([facility] ) Principal Diagnosis: RESPIRATORY FAILURE HYPOXIA/HYPERCAPNIA/TACHY JOE SYMPTOMS S/P PACEMAKER Procedures: CT CHEST WITH CONTRAST : IMPRESSION: 1. Allowing for extensive streak artifact secondary to arm positioning and respiratory motion, no central filling defect in the pulmonary arterial tree to suggest pulmonary embolus. 2. Findings loss and dependent consolidation of the lower lobes suggests extensive atelectasis. 3. Enlargement of the main pulmonary artery suggest pulmonary hypertension. Elevated right heart pressures as further evidenced by reflux of contrast into the IVC and hepatic veins. 4. Minimal groundglass opacity in the right middle lobe. Infectious etiology is difficult to exclude, however, the region involved is rather limited. Correlate clinically. BILATERAL LOWER EXTREMITY EDEMA : no evidence of DVT in either rt or left lower ext ECHO : * Normal LV chamber size with mild concentric LVH. * Normal LV systolic function, EF 55-60%. * No segmental left ventricular wall motion abnormalities are noted. * Aortic valve sclerosis moderate, without significant aortic valvular stenosis. * Moderate aortic valve sclerosis without stenosis. Mild aortic regurgitation. * Mild mitral regurgitation. * Severe tricuspid regurgitation. * Moderate left atrial enlargment. * Severe right atrial enlargement. * Pulmonary hypertension is present with a PASP of 43 mmHg assuming a RA pressure of 15 mmHg. Consultations: Pulmonology Cardiology Medication Reconciliation New Medications: Warfarin Sodium (Coumadin) 2 Mg Tab 1 TAB PO DAILY for 30 Days, #30 TAB 3 Refills Ipratropium [place] (Ipratropium [place]) 0.5 Mg/2.5 Ml Nebu 0.5 MG INH Q4H PRN for Shortness of Breath for 30 Days Levalbuterol (Levalbuterol) 1.25 Mg/0.5 Ml Nebu 1.25 MG INH Q4H PRN for Shortness of Breath for 30 Days Metoprolol Succinate (Metoprolol Succinate ER) 50 Mg Tabcr 50 MG PO QAM for 30 Days Polyethylene (Miralax) 17 Gm Pow 17 GM PO DAILY PRN for Constipation for 30 Days Continued Medications: Aspirin (Aspirin EC Low Dose) 81 Mg Ectab 81 MG PO DAILY Azelastine Hcl (Astelin Nasal [place]) 200 Sprays/30 Ml [place] 2 SPRAYS NA BID, BTL Citalopram Hydrobromide (Citalopram Hydrobromide) 10 Mg Tab 10 MG PO DAILY, TAB 3 Refills Furosemide (Lasix) 20 Mg Tab 20 MG PO QID PRN for PRN, TAB Levothyroxine Sodium (Levothyroxine Sodium) 112 Mcg Tab 112 MCG PO DAILY, TAB 3 Refills Potassium Ext Rel (Klor-Con) 20 Meq Tabcr 20 MEQ PO DAILY, TAB Referrals At Discharge Follow up Referrals: Physician Referral - Within 1-2 Weeks with Maria D Purvis D.O. Diver Pumper Referral - Within 1-2 Weeks with Jimi Cervantes DO Admission Information HPI (per Admitting provider): 76 year old female who presents to the ED after an unresponsive episode today. Some history is obtained from patient's friend who is at the bedside. She reports that she picked up the patient this morning to go for breakfast at [facility]. After breakfast and once patient got into the car the friend reports that the patient went unresponsive, was turning blue, and minimally breathing. EMS was called. Upon their arrival, patient was found to have elevated end tidal C02. BiPap was applied. Upon arrival to the ED, patient slowly started to improve. She was initially hypertensive and bedside echo was concerning for CHF so patient was started on nitro drip and given Lasix 40mg IV. EKG shows atrial fibrillation with controlled rate. At the time of my exam, patient is much more alert. She reports she has been feeling well recently. Patient is to wear oxygen 2L however did not wear it when she left the house today. She denies chest pain. No lightheadedness, dizziness, diaphoresis, or syncopal events. She denies abdominal pain, nausea, vomiting, or diarrhea. No fever or chills. She denies urinary symptoms. Patient's legs are noted to be red which she reports is chronic and that they are unchanged from baseline. In the ED, patient is improving with BiPap. EKG shows atrial fibrillation which seems to be new. Lactic acid is 3.0. No obvious signs of infection. Physical Exam (per Admitting): General Appearance: no apparent distress, + obese Head: normocephalic, atraumatic Eyes: normal inspection, PERRL, EOMI, sclerae normal ENT: hearing grossly normal, + pertinent finding (dry mucous membranes) Neck: supple, no JVD, trachea midline Respiratory/Chest: no respiratory distress, + decreased breath sounds, + pertinent finding (resting on BiPap) Cardiovascular: + irregularly irregular (rate controlled), + pertinent finding (+2-3 edema BLLE) Abdomen/GI: normal bowel sounds, non tender, soft, no organomegaly Extremities/Musculoskelatal: normal inspection, no calf tenderness, normal capillary refill Neurologic/Psych: no motor/sensory deficits, alert, normal mood/affect, oriented x 3 Skin: warm/dry, + pertinent finding (BLLE erythematous with dry flaking skin , no open area os drainage noted) Hospital Course ACUTE ON CHRONIC HYPOXIC, HYPERCAPNIC RESPIRATORY FAILURE Clinically improved , respiratory status at baseline presented with unresponsive episode ABG shows acidosis initially was placed on bipap chronically on oxygen 2lts had pace maker placement on 04/24/[address] chest no PE but extensive atelectasis pulmonary consulted and recommends bipap q hs, diuretics for elevated RSVP and sleep study and pft's as out patient arrangements made for Bipap on discharge to [facility] , pt will benefit form out pt sleep study NEW ONSET ATRIAL FIBRILLATION Unresponsive episode mostly from bradycardia Tachybrady syndrome s/p pace maker placement 04/24/17 started on Coumadin on hold today for elevated INR ARF resolved with IVF LACTIC ACIDEMIA likely from hypoxia normal on recheck Acute on chronic diastolic CHF lower extremity edema restart home po Lasix vol status stable HYPOTHYROIDISM on levothyroxine DEPRESSION on citalopram DVT PROPHYLAXIS INR elevated CODE STATUS Patient is a DNR DISPOSITION medically stable to be transferred to [facility] today Total time spent on discharge = 40 mins This includes examination of the patient, discharge planning, medication reconciliation, and communication with other providers. Discharge Instructions DI: Transfer Non Acute v4 Discharge Instructions Date of Service Apr 29, 2017. Admission Reason for Admission: Respiratory Failure With Hypoxia And Hypercapnia Discharge Discharge Diagnosis / Problem: RESPIRATORY FAILURE HYPOXIA/HYPERCAPNIA/TACHY JOE SYMPTOMS S/P PACEMAKER Discharge Goals Goal(s): Decrease discomfort, Improve disease control, Diagnostic testing, Therapeutic intervention Activity Recommendations Activity Level: Assistance Required Therapies: Physical Therapy, Occupational Therapy Weightbearing Status: Left non-weightbearing Lifting Limitations: no more than 10 pounds (left arm not more than 10 lb for 1 week ) Shower/Bathe: no limitations Cannot lift more than 10 pounds with the left arm for 2 weeks. Can shower , let water run over the incision, do no scrub it for 1 week should follow up in at [facility]iology office with device and wound check in 7-10 days. ACTIVITY RECOMMENDATIONS: * Do not raise affected arm over head /DO NOT lift the left elbow over left shoulder for 1 month. SPECIAL CARE INSTRUCTIONS: * If bleeding occurs, apply direct pressure to area for 5 minutes. * Call your doctor if you have severe pain, fever, drainage or bleeding at site. * Keep dressing on and dry for 48 hours then remove. * Keep any scheduled doctor's appointment. * Implant Card - hand held device with website information given. SKIN IRRITATION: * You may experience some redness and/or swelling in the area where radiation was administered. If any skin irritation occurs, please contact your family physician. FOLLOW UP VISIT: Keep any scheduled doctor appointments. . Additional Information Patient informed of condition: Yes Advance Directives: Yes DNR: Yes Level of Care: Skilled Communicable Disease: No Prognosis: Stable Haley Catheter: No Instructions / Follow-Up Instructions / Follow-Up DO NOT TAKE COUMADIN TODAY OR TOMORROW LAB WORK : INR /PT CHECK ON 04/30 RESUME COUMADIN IF INR < 2 NEED CLOSE FOLLOW UP WITH COAGULATION CLINIC FOR MONITORING OF INR HOSPITAL FOLLOW UP WITH FAMILY PHYSICIAN IN A WEEK PACEMAKER CLINIC FOLLOW UP 05/06/2017 1:00 PM Pacer Clinic [facility] CONTINUE TO USE BIPAP AT NIGHT WILL NEED PULMONOLOGY FOLLOW UP WITH DR CERVANTES AFTER DISCHARGE FROM REHAB WILL NEED OUT PT PULMONARY FUNCTION TEST IN PULMONOLOGY OFFICE Current Hospital Diet Patient's current hospital diet: AHA Diet (Heart Healthy) Discharge Diet Recommended Diet: AHA Diet (Heart Healthy) Pending Studies Studies pending at discharge: no Medical Emergencies . Who to Call and When: Medical Emergencies: If at any time you feel your situation is an emergency, please call 911 immediately. . Non-Emergent Contact Non-Emergency issues call your: Primary Care Provider . . "Provider Documentation" section prepared by Any Pedersen. . Core Measure Problem Core Measures: None
== END 2017-04-29 19:45 | DRG 242 ==
LOC: EDBD 13:40 → C.EDA 13:48 → C.MED 16:07 → ENRESERV 16:15 → EDBEDREQ 04-24 12:20 → ENRESERV 04-24 12:25 → C.2T 04-24 13:50
PROVIDERS: ADMIT Family Medicine; ATTEND Hospitalist
PROC: 02HK3JZ Insertion of Pacemaker Lead into Right Ventricle, Percutaneous Approach (ICD-10-PCS; principal; 2017-04-24 11:56)
PROC: 02H63JZ Insertion of Pacemaker Lead into Right Atrium, Percutaneous Approach (ICD-10-PCS; principal; 2017-04-24 11:56)
PROC: 0JH606Z Insertion of Pacemaker, Dual Chamber into Chest Subcutaneous Tissue and Fascia, Open Approach (ICD-10-PCS; principal; 2017-04-24 11:56)
DX: I49.5 Sick sinus syndrome (principal); J96.22 Acute and chronic respiratory failure with hypercapnia; J96.21 Acute and chronic respiratory failure with hypoxia; I50.33 Acute on chronic diastolic (congestive) heart failure; E87.2 Acidosis; N17.9 Acute kidney failure, unspecified; I48.91 Unspecified atrial fibrillation; E03.9 Hypothyroidism, unspecified; F32.9 Major depressive disorder, single episode, unspecified; J44.9 Chronic obstructive pulmonary disease, unspecified; E66.9 Obesity, unspecified; Z79.899 Other long term (current) drug therapy; Z79.82 Long term (current) use of aspirin; Z66 Do not resuscitate; Z99.81 Dependence on supplemental oxygen; Z68.38 Body mass index [BMI] 38.0-38.9, adult

== ENCOUNTER → 2017-05-13 | Outpatient (CLI) | payer OTHER ==
[~2017-05-13] MED LIST changes: +ASPEC81 PO; +ASTN; +ATRINS INH; +CITA10TA4 PO; +FURO-85 PO; +LEVO112T4 PO; +MRLP17X PO; +POTA20TA16 PO; -RAPID SEQUENCE INDUCTION BAG ONE; +TPRSR50 PO; +WARF2TAB PO; +XPNINS1255 INH
--- NOTE | 2017-05-13 15:48 | DIAGNOSTIC IMAGING REPORT ---
LEFT UPPER EXTREMITY VENOUS DOPPLER HISTORY: CHRONIC RESPIRATORY FAILURE,COPD,LT UE COMPARISON STUDY: None. FINDINGS: The left internal jugular vein is patent. There is normal flow within the left subclavian vein. There is normal flow and compressibility within the left axillary, basilic, brachial, radial, and visualized cephalic veins. The left ulnar vein is not visualized due to the soft tissue edema at this location. Pacemaker wires are noted within the left subclavian vein IMPRESSION: No thrombus identified within the visualized left upper extremity deep venous system. Electronically signed by: Mike Amaya M.D. 05/13/2017 3:46 PM Dictated Date/Time: 05/13/2017 3:45 PM
== END | disposition home or self-care (01) ==
LOC: C.ULTR 14:50
PROVIDERS: ATTEND Physician Assistant
DX: J44.9 Chronic obstructive pulmonary disease, unspecified (principal); R60.9 Edema, unspecified